=== PATIENT | male | born 1975 | race Caucasian/White ===

== ENCOUNTER 2020-01-12 09:00 | Outpatient (RCR) | payer BC, SELFPAY ==
--- NOTE | 2020-01-12 09:04 | BH.SGPN.GN ---
Behaviors/Verbalizations/Mental Status: []Client alert and oriented, neat in appearance. Eye contact good. Motor activity appropriate. Speech within normal limits. Affect congruent, mood anxious. Thoughts linear, logical, no signs of hallucinations or delusions. Client Response/Progress/Benefit: []Pt responded well to session AEB pt listening attentively to others and openly sharing thoughts and feelings. Pt stated he is seeking help because he started having worsening anxiety about 6 weeks ago. pt shared he has gone to the emergency room twice in 6 weeks believing he was having a heart attack, but both times was told his heart is fine. Pt stated he realized his anxiety was causing physical problems. Pt reported he has been working on building healthy skills for the past month, but recognizes he could use additional help. Pt stated he has learned some skills to help with some of his anxiety, but when the tidal wave of anxiety hits he doesn't know what to do. Pt identified current emotions are anxiety and hope. Pt seemed to benefit from support by peers. Pt's first day in IOP. Pt recommended to continue IOP to increase healthy skills, decrease anxiety and prevent decompensation. Narrative Note: []
--- NOTE | 2020-01-12 10:10 | BH.SGPN.GN ---
Behaviors/Verbalizations/Mental Status: []Client alert and oriented, casually dressed and groomed. Eye contact good. Motor activity appropriate. Speech within normal limits. Affect constricted, mood anxious, depressed. Thoughts linear, logical, no signs of hallucinations or delusions. Client Response/Progress/Benefit: []Client first day in IOP program. He was receptive of session, attentive in discussion and activity. Client actively listening discussion on the quote. Client helped group identify barriers that impact one?s ability to communicate when emotions are high. These barriers included; lack of trust, fear of other?s reactions, learned beliefs and behaviors, past experiences, and distorted thoughts. Client shared that holding in emotions can lead to decreased ability to cope later on when facing larger stressors. Client participated in the activity and did well to manage his emotions while providing directions and encouragement to others. Client appeared to benefit from increasing awareness of how emotions can impact communication and practicing in the moment coping skills. Will continue IOP tx to further increase improve coping and communication, reduce anxiety, and improve daily functioning. Narrative Note: []
--- NOTE | 2020-01-12 11:15 | BH.SGPN.GN ---
Behaviors/Verbalizations/Mental Status: []Client alert and oriented, professionally dressed and groomed. Eye contact good. Motor activity appropriate. Speech within normal limits. Affect constricted, mood anxious. Thoughts linear, logical, no signs of hallucinations or delusions. Client Response/Progress/Benefit: []Client attentive and occasionally contributing to discussion. Attentive during psychoeducation on 4 zones of regulation. Client able to identify how client feels in each zone as well as how client acts in each zone. Client able to identify what behaviors client exhibits when in the different emotional zones. Client also able to identify coping skills client can use to cope effectively in each zone which included: talking to a safe support, breathing, and focusing on a task. Client reports belief he is in the ?yellow zone? or the heighten emotional alertness zone today because he feels anxious. Client shared he has been struggling to regulate his anxiety, but he is starting to learn more about what helps him. Client reported eating lunch today and relaxing with his later will help client lessen anxiety and return closer to baseline. Benefited from increased education on zones of regulation or stages of alertness for emotions and healthy coping skills to use for each zone. First day of IOP. Will continue to prevent decompensation of anxiety symptoms and improve daily functioning. Narrative Note: []
--- NOTE | 2020-01-12 14:24 | BH.COMM_ITS ---
Communication Note - Communication with Client Communication Note: Met with pt to complete initial paperwork. No significant changes since pre-admission screening. Completed [facility] suicide screening. Low risk as client denies history of any suicidal ideations or passive thoughts of . Denies any suicidal ideations, plan, or intent. Denies history of attempts and self-injurious behaviors. Multiple protective factors noted. No weapons in the home.
--- NOTE | 2020-01-12 14:53 | BH.MDN ---
Multi-Disciplinary Note - Note 30-min Individual Time Started:: 12:09 Date: 01/12/20 Purpose of session/treatment goals addressed:: Purpose of this session was to establish rapport with pt, gather additional information regarding pt current functioning, symptoms, and stressors impacting mental health. Additional purpose was to complete the [place] Suicide Screening to assess for risk, discuss tx expectations, and begin development of treatment goals. Eye Contact:: Good, Other - tearful Motor Activity:: Appropriate Appearance:: Neat, Casual Speech:: Appropriate Mood:: Anxious, Depressed Affect:: Congruent Thoughts:: Linear, Logical, No evidence of hallucinations/delusions noted Staff Interventions:: Therapist asked open ended and furthering questions to gather additional information regarding pt's symptoms, current stressors, as well as events leading to IOP admission. Worked with client to explore treatment goals to address in IOP tx. Therapist used strengths perspective to build rapport and help pt identify personal positives and resilience factors. Therapist used empathic responses to provide emotional validation. Applied MD techniques to explore coping strategies that have helped in the past with mental health sx management. Client Response:: Pt open to meeting with this therapist and remained actively engaged throughout session. He reports that his first day in IOP went well and that he enjoyed the content of today?s group, managing emotions. 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 Went on to indicate often feeling like this was not the case and felt he benefitted from discussion on the importance of learning healthy ways for processing and expressing his emotions as he indicated he had not learned growing up that emotions can be a good thing. He discussed that her believes this led to his difficulties in processing his grief related to a traumatic loss experienced several months ago. Shared struggling with ongoing grief and intrusive thoughts about since then. Went on to indicate his primary concern is his difficulties with managing sx of anxiety and expressed he has recently had several panic attacks leading to an emergency department visit and several medical tests due to fears that something more is ?wrong?. Shared current sx have resulted in pt taking leave from work. Expressed significant anxious thoughts about medication and fears regarding ?what will happen if I?m not in control?. Shared worrying about being able to care for his family. Currently endorsing sx of increased anxiety, ruminating thoughts, intrusive thoughts of , depression, and low self-worth. Noted current sx have impacted ability to function at baseline and resulted in impacts on personal and occupational functioning. Pt identified tx goals as improving emotion regulation, specifically anxiety management skills and identifying healthy means of coping. Risks/Concerns:: No risks or concerns noted. Pt denies any active SI, plan, or intent. Reports his family as major protective factor. Future oriented. Pt aware of and willing to utilize the local crisis resources should he feel unable to maintain safety at any time. Progress Toward Goals/Plan:: Pt new to IOP tx and this is his 1st day in program, therefore limited progress currently noted. Reports he is motivated to make improvements for his mental health and ability to better manage anxiety. Pt endorses a depressed and anxious mood, negative thinking, depression, and crying spells. Identified goals for treatment as: improve ability to cope with his emotions specifically anxiety, improve self-esteem, improve application of healthy coping skills, and decrease depression. Will continue IOP to prevent decompensation, maintain safety, improve daily functioning, and increase mood stability. Time Stopped:: 12:40
--- NOTE | 2020-01-12 17:11 | BH.MTP_ITS ---
Master Treatment Plan - Patient Information Program Physician:: Dr. 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 Description of Barriers: Ongoing grief for client?s mentee who recently completed suicide. Occupational stress related to recent traumatic of his mentee and feeling unsure of his role in to [employer] field. Health anxiety and ongoing medical issues. Client has additional legal and financial stressors related to obtaining custody of his foster daughter who struggles with various medical issues as well. Functional Impact: Patient is a 44-year-old male with a history of anxiety and depression who was referred to [facility] in December and since then has had worsening symptoms and 2 emergency room visits for anxiety. 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 Pt has been struggling with significant intrusive thoughts about harming himself, as well as fears he has something physically wrong with him. Medical related anxiety has resulted in pt seeking out several m edical tests to identify potential physical ailments and has reduced ability to function at baseline. At time of admission, Pt endorsing sx of increased anxiety, ruminating thoughts, intrusive thoughts of , depression, and low self-worth. Noted current sx have impacted ability to function at baseline and resulted in impacts on personal and occupational functioning. Goal Relevant Strengths/Supports: Client presents as kind, outgoing, intelligent, resilient, and motivated. Client's anne is a protective factor and he has several supports in his life including his , clergy, and children. Client is receptive to learning skills and improving his mental health. - Objectives Objective #1 Stated Objective: Client will learn and utilize 2-3 healthy coping strategies to better manage depressive symptoms and reduce DSM-5 symptoms for depression. Interventions: Through group and individual sessions, therapist will help client identify triggers and warning signs of depression and emotional dysregulation including emotional, physical, and behavioral changes. Therapist will teach cli ent various coping skills to manage her symptoms. Therapist will use cognitive restructuring techniques and help client gain awareness of negative thoughts that reinforce depressive cycles. Therapist will help client incorporate mindfulness and emotional regulation skills when dealing with difficult situations. Discharge Criteria: Client will have met this goal when she can report learning and using at least 2 coping skills to manage depressive symptoms and her DSM-5 scores for depression have decreased. Target Date: 02/23/20 Review Date: 02/09/20 Objective #2 Stated Objective: Client will identify at least 2-3 negative self-talk messages used to reinforce depression and replace thoughts with positive, realistic messages. Interventions: Therapist will help client identify distorted, negative beliefs about self and replace with more realistic, affirmative messages. Therapist will use CBT to help client increase insight to the connection between thoughts, emotions, and behaviors. Therapist will encourage client to practice thought challenging and self-compassion. Discharge Criteria: Client will have achieved this goal when can verbalize at least 2 negative self-talk messages and effectively replace those thoughts with affirmative messages. Target Date: 02/23/20 Review Date: 02/09/20 Problem/Goal #2 - Problem/Goal #2 Stated Goal:: Client will reduce overall frequency, intensity, and duration of anxiety and ruminations about health so that daily functioning is not impaired. Description of Barriers: Ongoing grief for client?s mentee who recently completed suicide. Occupational stress related to recent traumatic of his mentee and feeling unsure of his role in to [employer] field. Health anxiety and ongoing medical issues. Client has additional legal and financial stressors related to obtaining custody of his foster daughter who struggles with various medical issues as well. Functional Impact: Patient is a 44-year-old male with a history of anxiety and depression who was referred to [facility] in December and since then has had worsening symptoms and 2 emergency room visits for anxiety. 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 Pt has been struggling with significant intrusive thoughts about harming himself, as well as fears he has something physically wrong with him. Medical related anxiety has resulted in pt seeking out several medical tests to identify potential physical ailments and has reduced ability to function at baseline. At time of admission, Pt endorsing sx of increased anxiety, ruminating thoughts, intrusive thoughts of , depression, and low self-worth. Noted current sx have impacted ability to function at baseline and resulted in impacts on personal and occupational functioning. Goal Relevant Strengths/Supports: Client presents as kind, outgoing, intelligent, resilient, and motivated. Client's anne is a protective factor and he has several supports in his life including his , clergy, and children. Client is receptive to learning skills and improving his mental health. - Objectives Objective #1 Stated Objective: Client will identify 2-3 anxiety triggers and 2 coping skills to use when feeling anxious to manage anxiety as shown by decreasing DSM-5 scores for anxiety. Interventions: Through group and individual sessions, client will gain awareness of her anxiety triggers and learn numerous techniques to manage anxiety symptoms. Therapist will mindfulness and other calming techniques to manage symptoms and increase distress tolerance skills. Discharge Criteria: Client will have met this goal when client's DSM-5 scores for anxiety decrease and when she can identify at least 2 triggers and 2 ways to cope with anxiety. Target Date: 02/23/20 Review Date: 02/09/20 Objective #2 Stated Objective: Client will identify 2-3 cognitive distortions or mistaken beliefs that lead to rumination and health anxiety and learn 2-3 ways to manage these thoughts to reduce symptoms Interventions: Therapist will provide education on the most common cognitive distortions and teach client the connection between thoughts, emotions, and feelings. Therapist will assist client in identifying, challenging, and replacing dysfunctional thoughts with positive, more realistic thoughts. Therapist will use CBT and DBT techniques to help client gain awareness of thinking errors and learn how to more effectively handle negative thoughts. Discharge Criteria: Client will have accomplished this goal when can identify at least 2 cognitive distortions and at least 2 coping skills to manage negative thoughts. Target Date: 02/23/20 Review Date: 02/09/20
--- NOTE | 2020-01-13 10:26 | BH.NA_ITS ---
Physical Data - Vital Signs Temperature: 97.8 F Pulse Rate: 60 Respiratory Rate: 16 Blood Pressure: 120/76 - Height/Weight Height: 1.75 m Weight:: 86.183 kg Weight in Pounds: 190.0 lbs Current Medication Compliance - Medication Compliance Do you take your medication as prescribed?: Yes Do you need assistance with taking medication?: No Nutritional History - Appetite Nutritional Instructions:: If client shows signs of a swallowing problem, weight change of 10 pounds or more in the last month, or is on a diabetic diet, the physician will review and request a dietitian consult, as appropriate. All unintentional weight loss will be referred to the physician for decision on need for dietitian consult. Describe your appetite:: Fair Have you noticed a change in your eating habits lately?: Yes Additional nutritional information:: states appetite has recently been improving in the last few days, but states he has lost 15lbs in the last 3-6 weeks. Functional Assessment - Sleep Pattern Describe any problems with sleeping: Client states he usually takes Tylenol PM at night to help him sleep, but will stop with new prescription given to him by Dr. Mahan. Client states he sleeps about 6-7 hours per night but does wake up more than once overnight. - Activities Motor Activity:: Functional Sensory/Communication Assess - Vision Problems Do you have any vision problems?: Glasses - Communication Problems Do you have difficulty understanding what people are saying?: No Medical Problems/History - Cardiac Conditions Comments:: Client has recently had cardiac work-up due to chest pain. Client states the tests that have been done (blood work, echo, CT, CXR) have all been negative. Client states he saw a pasta press operator outpatient and they stated chest pain was not cardiac related. Client states his PCP, Dr. Bearden, has him taking 600mg Ibuprofen twice daily at this time to attempt to help with chest discomfort. - Pain Assessment Do you have acute or chronic pain?: No Surgical History - Surgical History Have you had any surgeries? If so, list type and date:: Yes - hernia surgery x3, vasectomy Substance Abuse - Substance Abuse Please describe substance abuse in the last 30 days:: Client states in the last few months, he noticed that he was having an alcoholic drink a night to help him cope with anxiety symptoms. Client states he stopped drinking all alcohol after 11/10/2019, his first trip to the emergency department for chest pain. Client denies drug and tobacco use. Mental Status Summary - Mental Status Significant Findings/Observations on Appearance and Mood:: Client is alert and oriented x 4. Client neatly groomed. Client is pleasant and cooperative for assessment. Client makes good eye contact during conversation. Client's speech normal rate and volume, and coherent and clear. Client appears mildly anxious. Client with appropriate affect and makes logical associations. Client with normal processing. Client denies deluisions/hallucinations and no evidence of same. Client denies SI at this time. Client with good attention and concentration during assessment. Suicide Assessment - Suicidal Ideation Are you currently or have you been suicidal in the past?: Yes Suicidal Intentional Rating Scale (SIRS): Suicidal thoughts (past) - has had intrusive thoughts about , denies actual suicidal ideations Physician Notification: If Active suicidal thoughts/Will not contract for safety is checked, contact physician and document in the Physician Notification section below. Past Psychiatric History - MH Treatment Hx Past Psychiatric Medications:: Was on Zoloft and Buspar for short period of time recently. Client states after 4 days of Zoloft, he went to the emergency department with chest pain and had inverted T wave, increased blood pressure and intrusive thoughts about . Client states after about 4 days of Buspar, he felt more anxious and had more panic and had dark thoughts. Age of first mental health symptoms: Client states he felt he had some anxiety a couple of years ago and had some spiritual counseling. Client states in the last 3-4 months, he has had many episodes of chest pain that he feels are related to anxiety (after having cardiac work-up to rule out cardiac causes). Current providers for mental health treatment (counselor, psychiatrist, shoe parts caser, etc.): Client states he is currently doing grief counseling. Fall Risk Assessment - Age Age: Less than 60 - Mental Status Mental Status: Willing & able to ask for assistance when needed - Physical Status Physical Status: No problems - Impairments Impairments: None - Elimination Elimination: Continent AND independent - Gait or Balance Gait or Balance: Walks independently - Hx of Falls History of falls in the past 6 months: No known history - Medications/Substances Psychotropics:: Anxiolytics (e.g. benzodiazepines) Medications/substances used within the past 24 hours or ordered to administer: 1-2 of the medications/substances listed above - Total Score Total Points:: 1 RN Summary of Impressions - Impressions Recommendations: Include psychiatric and medical issues, treatment planning recommendations, and discharge planning needs. Impressions: Psychiatric Issues: major depressive disorder recurrent moderate, panick attack disorder, generalized anxiety disorder, somatic symptom disorder with predominant pain - Level of Care How do the client's current symptoms and functional deficits support need for this level of care?: Client states he has felt anxious in the last 3-4 months. Client states about 4-5 months ago, a close friend completed suicide. Client states he went to the emergency room 2 times in November 2019 for chest pain that he believes was caused by anxiety. Client has had cardiac work-up more than once to rule out cardiac causes of chest pain. Client states chest pain is still present, and his PCP Dr. Bearden has him currently taking Ibuprofen two times daily to attempt to help with chest pain that is sternal and also on right side of upper chest. Client states other symptoms he has been having in the past few months have been some intrusive thoughts about (he states these were intense when he was taking Zoloft and Buspar, states he had some images in his head about suicide and that were disturbing to him. Client states he was not ever actually suicidal himself but he imagined what it would be like if he went down that road). Client states he has panic attacks, where his chest is tight, neck and jaw pain, sometimes headaches. Client states he has had episodes of crying, decreased energy, and decreased self worth. 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 IOP will promote gains and prevent further decompensation while providing social support and skills training.
--- NOTE | 2020-01-13 11:20 | BH.SGPN.GN ---
Behaviors/Verbalizations/Mental Status: []Client alert and oriented, neatly dressed and groomed. Eye contact fair. Motor activity appropriate. Speech within normal limits. Affect constricted and mood anxious. Thoughts linear, logical, no signs of hallucinations or delusions. Client Response/Progress/Benefit: []Client provided input at times during discussion, listened attentively to peers. Client completed worksheet identifying his positive and negative forces in life. Client identified positive forces that aid in progressing toward mental health goals included: family, support system, anne, determination to get better, and fear of what will happen if doesn't get help. Client indicated negative forces that prevent progress include: getting stuck in unprocessed grief, health anxiety, difficulty asking for help and questioning self. Client seemed to benefit from increased awareness of personal positive and negative forces in life and impact they have on mental health and wellness. Client to continue IOP level of care to decrease anxiety, increase healthy coping and prevent decompensation. Narrative Note: []
[2020-01-13 11:34] VITALS: BP 120/76; PULSE 60; RESP 16; TEMP 36.6
--- NOTE | 2020-01-13 13:31 | PCM.BH.PSYEV ---
Psychiatric Evaluation - Initial Evaluation Initial Evaluation: Chief Complaint: [] Life is a daily felipe. History of Present Illness: [] Patient is a 44-year-old male with a history of anxiety and depression who was referred to [facility] in December and since then has had worsening symptoms and 2 emergency room visits for anxiety. 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 He plans to return to work in 1 month or so but also has doubts that he is in the right field for himself. He describes intrusive thoughts of cutting his wrists which occur only during severe panic attacks. He went to the emergency room November 10, 2019 with a panic attack and also went to the emergency room after taking BuSpar which triggered anxiety and a panic attack. He has had severe anxiety about his health and has had numerous symptoms of pain since about 1 year ago which have worsened in the past few months. He describes decreased ability to function at work and at home due to his anxiety and his symptoms of pain. He describes having chest pain since about 1 year ago. His primary care doctor had worked him up and tried medication which did not help. He also had a endoscopy which was negative. His pain is still there which is discomfort but also when he presses on his sternum and is tender to the touch. He has another area of pain in his right upper shoulder anteriorly and posteriorly on his back in the same spot. He also describes headaches, jaw pains and other pain. No one can find an apparent cause for his pain. He said his symptoms have worsened since August 2019 when a coworker that he was very close to committed suicide. He has some guilt over this. He also states that he feels he has unresolved traumas that he is working on with his counselor. He has been feeling depressed and down most days and has cried at times. His mood even worsens more than that when he has pain and anxiety. He has decreased motivation and at times feels hopeless. He states that currently he feels overall more hopeful since starting her program. He has mild out anhedonia but still enjoys his children. However he did state that Saturday is a very stressful day for him because the children are home and he has activities to do with them. His appetite is decreased and he lost 15 pounds since November secondary mostly to anxiety. He is sleeping about 7 hours a night now if he takes Tylenol PM. His energy level is low but may be improving. His concentration has been decreased especially when anxious. He has no passive thoughts of and denies any suicidal ideation or plan. He also denies homicidal ideation, hallucinations or delusions. He denies kamari, eating disorder, OCD and PTSD. He is a worrier by nature and was having panic attacks until about 10 days ago. His most recent panic attacks were caused by taking medications. He took Zoloft one time and BuSpar one time and had severe anxiety. He says he hates taking medication. He took Zoloft at 25 mg for 3 days and when he increased it to 50 mg he had severe panic attacks and went off it. He was admitted overnight in the emergency room after 1 of the panic attacks and had a complete cardiac cardiac work-up including an echo EKG and monitoring. His EKG at one point in the emergency room had inverted T waves but appears to have normalized later. Current Psychiatric Medications: [] Van 0.5 mg as needed (from PCP): Patient takes 1/2 tablet daily or twice daily at most. Past Psychiatric History: [] No psych admits. No suicide attempts ever. He has changed to a new primary care doctor Clementina Bearden because his other primary care doctor just wanted to give him a lot of meds for psych reasons and he did not want to take them. He has a grief counselor and another counselor in [place] that he is had for the past 3 years. He first received counseling at age 41. 2 years ago he had bad anxiety triggered by stress at confucianism and saw a counselor at that time. Past psych meds include Zoloft, BuSpar and that is it. He was first depressed and anxious in his teens and first took meds in November 2019. He feels he was never depressed before recent years but he feels like maybe he suppressed grief and loss is in the past. Substance Use History: [] No rehab ever. Non-smoker and no marijuana. No caffeine use or alcohol or other drugs. He did use alcohol on occasion and increased to 2 or 3 drinks a night in November but completely stopped using any alcohol since November 2019. Denies blackouts or other from alcohol use Allergies: []. No known allergies Medications: [] LPM for sleep, Ativan, ibuprofen 3 times daily for chest pain Past Medical History: [] Negative past medical history. He had a vasectomy and hernia repair in the past. Normal sexual function. Family Psychiatric History: [] Mother is 71 years old and his father is 70 years old and has some heart issues. He states that no one in the family takes any medication but he says there are a lot of worrier's in the family. No suicides. No substance issues. Personal/Social History: [] Patient was born and raised in [place] and describes his childhood as normal. He is the third of 4 siblings and has a brother 7 years older and a brother 6 years older. He has a sister 4 years younger. He is close to some of the siblings. His parents were and he felt that he was loved but he says his family did not express emotion at all. He denies any physical, verbal or sexual abuse. He said his father was critical at times. In school he received good grades and graduated high school went to college and got a BA in [employer] and a masters of Divinity. 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 They have 4 biological children ranging from age 2 to age 13 and one foster child who is 6 years old that they are trying to get permanent custody of. They have been fostering children for about the past 6 years but this is the last child they will foster. 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 He likes the teaching part and preaching but not the pastoral care part. He was a business major in college but changed his major 2 years and. Legal History: [] No arrests and no DUIs Review of Systems: [] Negative except as noted in present illness Vital Signs: [] Mental Status Examination: [] Patient is a 44 year-old male who appears normal for stated age and is casually dressed and groomed with good hygiene. He is cooperative during the interview and has no psychomotor agitation or retardation. Eye contact is good and speech is normal rate and rhythm and fluent with no pressure. Mood is depressed and anxious. Affect is constricted and consistent with mood. Thought process is goal-directed and organized. Thought content: There is no evidence of suicidal or homicidal Babita ideation. No dusts thoughts and no plan. No evidence of hallucinations or delusions. The patient is preoccupied with his numerous pain symptoms and worried about his health. Agents is above average. Judgment is intact. Insight is limited. Impulsivity is low. 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 He felt safe during the interview and if at any time he does not feel safe he will tell us to go to the emergency room. The risk, possible, complications side effects and options of medication were discussed with the patient and he understands and accepts these. He was given the option of getting gene site analysis from his outpatient providers. But if the patient's intolerance of medication is due to anxiety than this will probably not be the answer. He he is going to stay off all caffeine and he agrees to start trying to exercise right on a regular basis. He agrees to try Remeron 15 mg p.o. nightly. Side effects and possible complications were discussed in detail and patient understands and accepts these. If this does not work its possible we I could try Cymbalta later in the hope that if he does have any neuropathic pain it would help it. In addition if the chest pain persists after he is on the Remeron I may consider adding propranolol 10 mg p.o. twice daily for the chest pain. I will see the patient in 2 weeks.
--- NOTE | 2020-01-13 13:46 | BH.DR.ITP ---
Initial Treatment Plan - Patient Information Visit Information: ADMISSION DATE: EXPECTED LOS: 4-6 weeks - Problems/Symptoms Problem #1:: Anxiety Symptom:: somatic symptom of pain, rumination, panic Problem #2:: Depression Symptom:: sadness, weight loss, , hopelessness, guilt
--- NOTE | 2020-01-14 09:07 | BH.SGPN.GN ---
Behaviors/Verbalizations/Mental Status: []Eye contact is good. Motor activity is appropriate. Appearance is casual, grooming appropriate. Speech is Appropriate rate and soft tone. Mood is anxious. Affect is congruent. Thoughts are linear and logical. No evidence of psychosis. Reviewed daily check in sheet and pt denies any active SI, plan, or intent as of this date. Client Response/Progress/Benefit: [] Client responded well to session as evidenced by him listening attentively to others and openly sharing thoughts and feelings. Client identified current emotions to be tired and calm. Client stated his stressor was experiencing a tingling in his face on his drive home from [facility] yesterday which led to increased anxiety throughout the rest of the day. Client reported he will often google his physical symptoms which increases his anxiety. Client reported a mental health when from yesterday was choosing to go to dinner with a friend that came in to visit instead of staying at home. Client reported another mental health when was taking his new medication last night despite having worries that he will not respond well to the medication. Client shared in the last 6 weeks he has not been able to find a medication that does not have a side effect or his anxiety is causing side effects. Client reported he utilized meditation, deep breathing, and a weighted blanket to help decrease his anxiety. Progress noted with patient utilizing healthy coping skills to help manage his anxiety at times throughout the day. Client to continue [facility] level of care to decrease anxiety, increase healthy coping skills, and prevent decompensation. Narrative Note: []
--- NOTE | 2020-01-14 10:12 | BH.SGPN.GN ---
Behaviors/Verbalizations/Mental Status: []Client alert and oriented, casually dressed and groomed. Eye contact good. Motor activity appropriate. Speech within normal limits. Affect congruent, mood anxious. Thoughts linear, logical, no signs of hallucinations or delusions. Client Response/Progress/Benefit: []Pt active participant as shown by contribution to discussion and increased ability to provide insight to group. Appearing more comfortable in group setting. Pt shared that self-care is important but can be difficult based on whether we are taught to value self-care. Pt helped the group discuss benefits of self-care and expressed connecting to idea of self-care as preventative. Benefits included; improved relationships, maintaining stability, less stress, better perspective, and improved mood. Pt participated in the discussion of the common myths about self-care including self-care is selfish, always fun, too much effort and time, and we don?t deserve it. Client participated in the discussion on debunking of these myths, and took on a semi-active role during discussion. Taking notes throughout. Group stated that everyone is worthy of self-care and by practicing self-care daily, it can prevent avoidable additional stressors. Client seemed to benefit from increased awareness of the importance of self-care and challenging common myths that prevent clients from practicing self-care. Client showing some progress, however new to IOP and continues to appear anxious to engage in group discussion. Will continue IOP tx to promote gains, further improve healthy skill application, as well as prevent decompensation. Narrative Note: []
--- NOTE | 2020-01-14 11:15 | BH.SGPN.GN ---
Behaviors/Verbalizations/Mental Status: []Client alert and oriented, neatly dressed and groomed. Eye contact good. Motor activity appropriate. Speech within normal limits. Affect constricted, mood anxious. Thoughts linear, logical, no signs of hallucinations or delusions. Client Response/Progress/Benefit: []Client receptive of session, actively listening and contributing to discussion. Participated as the group further processed the activity and connected that maintaining self-care requires balancing life stressors and making oneself a priority. Client shared life stressors and responsibilities can become barriers to self-care, ?but if we don?t practice it, we can?t give to others.? Willing to complete worksheet activity and helped the group identify self-care activities. Client completed self-assessment activity on the different areas of self-care and was able to identify current practices he uses and identify areas he can improve upon. Client reported he can improve his physical self-care area. Client shared ?exercise is something I haven?t got back yet.? Client set a goal to improve in the area of physical self-care. Client?s goal is to practice combining his spiritual routine with walking or yoga to begin incorporating exercise. Client appeared to benefit from increasing awareness of how he can improve his self-care balance. Client?s first week of IOP. Will continue IOP tx to prevent decompensation, reduce intrusive thinking, and improve daily functioning. Narrative Note: []
--- NOTE | 2020-01-19 09:08 | BH.SGPN.GN ---
Behaviors/Verbalizations/Mental Status: [] Pt eye contact good, casually dressed, motor activity appropriate, speech normal rate and tone, mood anxious, congruent affect, thoughts linear and intact, no evidence of delusions or hallucinations. Reviewed client?s symptom tracker, no signs of suicidal ideation, plan, or intent as of today. Client Response/Progress/Benefit: [] Patient responded well to session as evidenced by him listening attentively to peers and sharing thoughts and feelings openly with group. 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 Patient reported typically he has an assistant professor nurse education at the game which provides comfort if patient needs to step out because of his anxiety. Patient stated this past Saturday his assistant professor nurse education was not at the game which increased his anxiety but by using deep breathing and self talk he was able to manage his anxiety and make it through the game. Patient reported an additional mental positive was going for a hour walk on Saturday to get some exercise and remind himself to trust his doctors and professionals. Client identified a stressor is experiencing chest pain and other physiological symptoms since yesterday which he knows is likely anxiety but it still results in him having what if thoughts about health. Patient identified current motion to be concerned. Patient reported he goes to see his primary care doctor on Saturday to get the results of a CT scan. Patient demonstrating progress with utilizing self talk and calming strategies to manage his anxiety in the moment. Patient to continue IOP level of care to decrease anxiety, increase ability to sit with uncomfortable emotions, and prevent decompensation. Narrative Note: []
--- NOTE | 2020-01-19 10:15 | BH.SGPN.GN ---
Behaviors/Verbalizations/Mental Status: []Client alert and oriented, neatly dressed and appropriately groomed. Eye contact good. Motor activity appropriate. Speech within normal limits. Affect constricted, mood anxious. Thoughts linear, logical, no signs of hallucinations or delusions. Client Response/Progress/Benefit: []Client was an active participant in group activity and provided input to discussion. Client connected with the topic of obstacles and solutions and worked with group to identify common internal and external barriers that keep people stuck. Group identified; self-doubt, negative thinking, unrealistic expectations, helplessness, and what if thinking as potential internal barriers that could prevent progress towards a better quality of life. Client shared current reality as me looking back in the past and in the future instead of the future. Client reported currently he is struggling with racing thoughts, pain, unprocessed grief, and managing his anxiety. Client shared there are times though when I start to feel like my old self. Client's realistic, desired reality is to feeling totally centered which to client means having a good relationship with God, his supports, and with himself. Client identified barriers keeping him from his desired reality to include; not being present, shutting down, and being reactive instead of responsive. Benefited from group as client was able to identify current mental health state and barriers that are impacting progress. Will continue IOP tx to prevent decompensation, decrease intrusive thoughts, and improve distress tolerance. Narrative Note: []
--- NOTE | 2020-01-19 11:20 | BH.SGPN.GN ---
Behaviors/Verbalizations/Mental Status: []Client alert and oriented, casually dressed and groomed. Eye contact good. Motor activity appropriate. Speech within normal limits. Affect congruent, mood dysthymic, anxious. Thoughts linear, logical, no signs of hallucinations or delusions. Client Response/Progress/Benefit: []Client was an active participant in group discussion and activity. Pt was engaged during activity and provided ideas on how to cope with internal barriers impacting ability to reach desired reality. Client along with peers identified various obstacles during the activity and developed strategies to overcome those obstacles to wellness and desired reality. Barriers identified by the group included: impatience, difficulties communicating with supports, overwhelming anxiety, and unrealistic expectations. Strategies identified for overcoming these barriers included: deep breathing, taking small steps, thought challenging, and mindfulness. Client selected wanting to work on applying the skill of recognizing supports available and actually taking steps to utilize the as a means of overcoming his own internal barriers. Benefited from group by identifying obstacles and solutions to desired reality. Will continue IOP tx to increase mood stability, reduce mental health sx, and increase anxiety management skills. Narrative Note: []
--- NOTE | 2020-01-19 15:40 | BH.MDN ---
Multi-Disciplinary Note - Note 30-min Individual Time Started:: 12:23 Date: 01/19/20 Purpose of session/treatment goals addressed:: Purpose of session was to assess pt's current symptoms and stressors. Other topics included: Reviewing homework and discussing factors impacting severity of intrusive thoughts as well as beginning to discuss helpful and unhelpful strategies for managing unwanted intrusive thoughts. Eye Contact:: Good Motor Activity:: Appropriate Appearance:: Casual Speech:: Appropriate Mood:: Anxious Affect:: Congruent Thoughts:: Linear, Logical, No evidence of hallucinations/delusions noted Staff Interventions:: Therapist used open ended questions to elicit pt's current symptoms and stressors. Provided supportive feedback and empathic responses. Therapist reviewed homework from last session explaining intrusive thoughts and how they form. Therapist assisted pt with identifying factors impacting his own thoughts. Therapist provided psychoeducation on strategies for managing unwanted intrusive thoughts and role of reassurance in reinforcing intrusive thinking. Therapist provided support by using active listening and validating emotions. Client Response:: Pt receptive of session, engaged throughout. He reported feeling ?alright? today but has recently begun to struggle with increased anxiety related to pains he has been having in his chest. Reported that he has been practicing trying to sit with the uncomfortable and that this is helpful in times when he is not stressed but has been struggling more when the pain is not a sensation he has felt before. Indicated that this makes it more difficult to challenge the thoughts and reassure himself that it is ?just anxiety?. Pt expressed understanding psychoeducation provided regarding impact of increased stress on increasing likelihood of experiencing intrusive thoughts as well as further impacting the difficulty in effectively coping with such thoughts. Pt shared that he has been experiencing an influx in stress recently which includes: grief related to past events, stress related to legally seeking custody of his foster daughter, his home environment, questioning his ability and desire to return to work, disruption in his normal routine, and experiencing physical pains. Discussed with therapist common means of coping he has been using and pt shared that he often journals about what was happening before or after anxiety occurs, engaging in mindfulness, reminding himself this is just anxiety, and seeking support. Receptive of discussion on identifying when seeking support from self and others can become toxic and reviewed influence of reassurance seeking on maintaining and reinforcing anxiety. Discussed strategy of ?riding the wave? and learning to sit with uncomfortable feelings and intrusive thoughts rather than trying to fight them. Pt noted willingness to attempt practicing the six steps for overcoming unwanted intrusive thoughts for homework as discussed in the Overcoming Unwanted Intrusive Thoughts book. Risks/Concerns:: None noted, pt denies current suicidal ideation, plan or intention to date, 01/19/20. Progress Toward Goals/Plan:: Limited progress. Pt reports information provided regarding intrusive thinking has been helpful in beginning to identify and learn to sit with his thoughts but that he has recently struggled with increased anxiety related to physical symptoms. Shared this impacted ability to function and continues to result in panic. Pt recognizes impact of reassurance seeking on maintaining anxiety but struggles to see his own engagement in reassurance seeking behaviors. Pt to continue IOP level of care to increase consistent application of healthy skills, challenge negative thoughts and prevent decompensation. Time Stopped:: 12:59
--- NOTE | 2020-01-20 09:04 | BH.SGPN.GN ---
Behaviors/Verbalizations/Mental Status: []Pt alert and orient x3. Eye contact good. Motor activity is appropriate. Appearance is casual. Speech is Appropriate. Mood is euthymic, anxious. Affect is congruent. Thoughts are linear and logical. No evidence of psychosis. Reviewed daily check in sheet and no reports of suicidal ideations or intent. Client Response/Progress/Benefit: []Pt responded well to session, listening throughout discussion and providing supportive feedback to the group. Reports emotion for the day as ?positive, motivated? and indicated that this is due to feeling less anxious this morning that previous date. Pt did well to identify current mental health win as working through anxious thoughts on previous date by applying positive self-talk, sitting with the uncomfortable, taking a break, and deep breathing. Additional win identified as staying engaged during increased anxiety rather than disconnecting when spending time with his family. Stressor noted as reminding himself that the medication he has been prescribed for his anxiety is to help him and is safe. Benefited from support of the group and identifying personal successes. Progress noted in pt ability to successfully manage sx of anxiety outside group environment. Recommended continued IOP tx to promote healthy change behaviors, increase distress tolerance and emotion regulation, and reduce overall mental health sx severity. Narrative Note: []
--- NOTE | 2020-01-20 10:18 | BH.SGPN.GN ---
Behaviors/Verbalizations/Mental Status: []Client alert and oriented, neatly dressed and groomed. Eye contact good. Motor activity appropriate. Speech within normal limits. Affect flat, mood anxious. Thoughts linear, logical, no signs of hallucinations or delusions. Client Response/Progress/Benefit: []Client was an active participant AEB engagement in group activity and providing insightful input during discussion. Client worked with group to define resilience. Client shared when faced with difficult situations in life he often tells himself ?I can get through this.? Client able to make connections between activity and barriers/supports to the development of a resilient lifestyle. Client agreed with peers that one can learn to become more resilient throughout life, but it takes challenging thinking. Client able to work with group to discuss benefits of resilience on mental health which included; better management of mental health symptoms, increased healthy coping skills, increased confidence, less fear of stressors, and personal growth. Client was very active during group discussion and helped the group identify ways the 10 steps can make a person more resilient. Progress noted as shown by client?s report of applying coping skills outside of IOP to manage anxiety in the moment, but he still continues to struggle with intrusive thinking. Recommended continued IOP tx to reduce anxiety and intrusive thinking to improve daily functioning. Narrative Note: []
--- NOTE | 2020-01-22 09:05 | BH.SGPN.GN ---
Behaviors/Verbalizations/Mental Status: [] Eye contact is good. Motor activity is appropriate. Appearance is casual. Speech is appropriate. Mood is anxious. Affect is congruent. Thoughts are linear and logical. No evidence of psychosis. Reviewed daily check in sheet and no reports of suicidal ideations or intent. Client Response/Progress/Benefit: [] Pt participated at times. Emotions for today is encourged. Pt shared that he has a meeting with his employer yesterday regarding his return to work and feels encouraged by this. Reports that it was a positive meeting and overall he feels that he is making progress towards returning to work. Briefly discussed some skills and strategies that he is implementing and learning about to help with intrusive thoughts. Progress noted. Benefited from group support, encouragement, and feedback. Will continue in IOP to prevent decompensation, increase healthy coping, and improve functioning to return to work. Narrative Note: []
--- NOTE | 2020-01-22 10:15 | BH.SGPN.GN ---
Behaviors/Verbalizations/Mental Status: [] Eye contact is good. Motor activity is appropriate. Appearance is casual. Speech is Appropriate. Mood is anxious. Affect is congruent. Thoughts are linear and logical. No evidence of psychosis. Client Response/Progress/Benefit: [] Pt was an active participant in group discussion and activity. Attentive during psychoeducation. Provided feedback on the quote of the day. Worked with peers on defining goals (purposes), identifying benefits of goal-setting, and providing feedback during psycho-education on SMART goals. Engaged in activity. Benefited from group by learning the mental health benefits of setting goals that are specific, measurable, attainable, relevant, and time-specific. 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
--- NOTE | 2020-01-22 11:15 | BH.SGPN.GN ---
Behaviors/Verbalizations/Mental Status: [] Eye contact is good. Motor activity is appropriate. Appearance is neat. Speech is Appropriate. Mood is anxious. Affect is congruent. Thoughts are linear and logical. No evidence of psychosis Client Response/Progress/Benefit: [] Pt was an active participant in group discussion and activity. Provided appropriate feedback to peers. Pt choose the goal; Attend pentec[employer]alism this Saturday and be present among the sikh. When asked why this goal was important and beneficial to his mental health he stated; I want to see how I handle this experience so I don't overwhelm myself when I return to [facility] on 01/31/20. Identified the following barriers to completing this goal which included;my own anxiety, fear of not knowing how I'll react, feeling vulnerable, and my own expectations. Group provided feedback on whether this goal met the standards of a SMART goal and a discussion was had on strategies to help support his goals and overcome the barriers. Benefited from this group by practicing how to develop a short-term SMART goals related to mental health. Narrative Note: []
--- NOTE | 2020-01-25 09:05 | BH.SGPN.GN ---
Behaviors/Verbalizations/Mental Status: []Pt alert and orient x3. Eye contact good. Motor activity is appropriate. Appearance is casual. Speech is Appropriate. Mood is anxious. Affect is congruent. Thoughts are linear and logical. No evidence of psychosis. Reviewed daily check in sheet and no reports of suicidal ideations or intent. Client Response/Progress/Benefit: []Pt responded well to session AEB pt listening attentively to others and willingness to share with the group. Pt reported current emotion as ?steady? and indicated this is due to doing better to prevent his anxious thoughts from escalating to panic. Pt did well to identify mental health wins. Indicating a mental health positive was completing the goal he had set for himself in goal setting group on Saturday. Expressed this is also his stressor as it means he has to hold himself accountable now and is struggling with urges to avoid doing so. Continues to struggle with what if thoughts impacting decision making process, though is showing increased insight and progress in this area. Pt identified additional positive as being able to make it through several medical appointments without panic. Shared practicing applying sitting with the uncomfortable and reminding what is in his control. Pt progress in increased engagement in treatment setting. Pt appearing to benefit from ongoing support provided by group. Pt recommended to continue IOP to increase healthy coping, challenge distorted thoughts, and prevent decompensation. Narrative Note: []
--- NOTE | 2020-01-25 11:20 | BH.SGPN.GN ---
Behaviors/Verbalizations/Mental Status: []Client alert and oriented, neatly dressed and groomed. Eye contact good. Motor activity appropriate. Speech within normal limits. Affect congruent, mood euthymic. Thoughts linear, logical, no signs of hallucinations or delusions. Client Response/Progress/Benefit: []Client responded well to session, quiet, but participating when prompted. Group discussed the mental health benefits of recognizing strengths which included; improved self-esteem, better coping skills, and improved mood. Client shared that the way we are raised can cause a person to not recognize strengths. Client able to identify personal strengths he possesses which included; honesty, leadership, and wisdom. Client shared his wisdom helps client see the big picture and his honesty has helped client be vulnerable in seeking mental health support. Group discussed strategies to build and improve strengths which included; practicing self-compassion, affirmations, applying strengths or ?use them,? self-care, and keeping track of wins. Appeared to benefit from recognizing personal strengths and identifying strategies to improve strengths. Progress noted as client has been reporting decreased anxiety and duration of panic attacks, but continues to struggle with intrusive thinking. Will continue IOP tx to prevent decompensation and improve daily functioning. Narrative Note: []
--- NOTE | 2020-01-28 09:08 | BH.SGPN.GN ---
Behaviors/Verbalizations/Mental Status: []Pt alert and orient x3. Eye contact fair to good. Motor activity is appropriate. Appearance is casual. Speech is WNL. Mood is euthymic. Affect is congruent. Thoughts are linear and logical. No evidence of psychosis. Reviewed daily check in sheet and no reports of suicidal ideations or intent. Client Response/Progress/Benefit: []Pt responded well to session AEB pt listening attentively to others and willing to process with group. Pt reported current emotion as ?tired and tentative?, indicated this is due to being able to begin to see where he is making progress in coping with anxiety and making some decisions regarding plans for his future career [employer]. Pt did well to identify mental health wins. Current wins include reminding himself to apply components of radical acceptance in managing health related anxiety. Shared reminding himself that ?this is not that? when comparing his present to a past negative experience. Additional win recognized as being able to ?commit to giving up [employer] for lent?. Shared feeling this will help in reducing overall anxiety levels. Shared current stressor as struggling with ongoing anxiety associated with medical issues and his work despite improving on coping with these areas. Progress in pt self-report of improved anxiety management and ongoing application of skills learned, though would benefit from increased consistency. Pt recommended to continue IOP to increase consistency of healthy coping, improve anxiety management, and prevent decompensation. Narrative Note: []
--- NOTE | 2020-01-28 10:16 | BH.SGPN.GN ---
Behaviors/Verbalizations/Mental Status: []Client alert and oriented, neatly dressed and appropriately groomed. Eye contact good. Motor activity appropriate. Speech WNL. Affect full, mood euthymic. Thoughts linear, logical, no signs of hallucinations or delusions. Client Response/Progress/Benefit: []Client active participant as evidenced by providing input throughout discussion and giving personal examples of his experience with distorted thinking. Client agreed that he experiences automatic thoughts and often these thoughts can be negative. Client connected with the discussion about how distorted thought patterns can reinforce mental health symptoms. Client reported distorted thoughts can lead to rigid expectations and cause a person to give up on positive things. Client noted that he connects with black and white thinking, mental filter, and catastrophizing. Client reported he recognizes cognitive distortions can lead to increased depression, increase anxiety, and impact relationships. Client shared black and white thinking has impacted client's diet and exercise. Client reported either I'm on keto or I'm overeating...same thing with exercise. Appeared to benefit from increasing awareness of cognitive distortions and how they can impact emotions and behaviors. Client to continue IOP tx to decrease anxious thoughts and improve daily functioning. Narrative Note: []
--- NOTE | 2020-01-28 11:20 | BH.SGPN.GN ---
Behaviors/Verbalizations/Mental Status: []Pt eye contact good, casually dressed, motor activity appropriate, speech normal rate and tone, mood euthymic, congruent affect, thoughts linear and intact, no evidence of delusions or hallucinations. Client Response/Progress/Benefit: []Client?engaged during session AEB client providing contributions throughout group session. Client acknowledged the importance of needing to have awareness and put forth the effort to challenge, reframe, and replace distorted thought patterns. Client worked cooperatively with group to challenge distorted thoughts and was attentive in learning strategies to combat distortions. Client reported a distorted thought he has my seems upset I did something to make her mad. Client reported this thought makes him feel discouraged, sad, angry, distant, and disconnected. Client stated the thought is jumping to conclusions because has no evidence to support that thought. Client reframed the thought to my seems upset perhaps she had a bad day, I'll ask her. Client seemed to benefit from increased awareness of cognitive distortions and practicing reframing distorted thoughts. Client to continue IOP level of care to continue use of healthy coping, focus on what's in his control and prevent decompensation. Narrative Note: []
--- NOTE | 2020-01-28 11:42 | BH.MDN ---
Multi-Disciplinary Note - Note 45-min Individual Time Started:: 08:06 Date: 01/28/20 Purpose of session/treatment goals addressed:: The purpose of this session was to address current symptoms, stressors, and treatment goal progress. Additional topics discussed included: radical acceptance and self-care. Eye Contact:: Good Motor Activity:: Appropriate Appearance:: Neat, Casual Speech:: Appropriate Mood:: Euthymic, Anxious Affect:: Congruent Thoughts:: Linear, Logical, No evidence of hallucinations/delusions noted Staff Interventions:: Therapist used active listening and open-ended questions to explore client's current stressors, symptoms, and treatment goal progress. Therapist commended pt on application of skills reviewed for homework and gave supportive feedback. Therapist provided psychoeducation on concept of radical acceptance in management of anxiety and intrusive thoughts. Therapist taught client R.A.I.N. approach to self-compassion. Therapist reviewed self-care strategies and discussed role of self-care in anxiety management and mental wellness as well. Gave client homework to practice using R.A.I.N. in addressing intrusive thoughts as well as spend time engaging in at least one pure enjoyment self-care activity. Client Response:: Client responded well to session, open to meeting with therapist. Client shared feeling he is doing ?better overall? and indicated this is due to better managing his anxiety and making strides towards more consistently challenging himself not to act on initial anxious thoughts and instead learn to sit with them and continue engaging in his normal routine. Pt shared ?my intrusive thinking is improving by doing better at ?riding the wave??. Noted that although he has made progress in this area, he continues to struggle with anxiety related to ongoing physical health concerns. Shared recently having a CT done and is scheduled for a variety of tests throughout the next week including an MRI. 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 Expressed trying to remind himself that although the mass may be resulting in some of his increased sx of anxiety, it does not mean it is the only cause and that he should continue to work on anxiety management skills. Open to learning more about radical acceptance and the R.A.I.N approach to coping with reality without catastrophizing. Pt described the chaos of small children in his home environment as well as deciding what his return to work plans are continue to remain stressors as well. 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 Discussed current practices he is using outside of thought challenging to reduce stress and noted engaging in daily meditation and reading but has struggled to do much else. Shared a desire to get back into exercise and has considered taking a ceramics class. Noted guilt about practicing ?me time? when his is with the kids. Willing to discuss setting aside time for both of them to take for self-care. Pt reports often utilizing task oriented approaches to self-care but has not engaged in activities without a set end purpose in several years. Shared this may have additionally contributed to mental health decline and feelings of burnout. Risks/Concerns:: No risks or concerns noted. Denies any SI, plan, or intent as of this date 01/28/20. Progress Toward Goals/Plan:: Client appears to be responding well to treatment and making progress towards treatment goals. Client continues to report some health related intrusive thoughts and anxiety about return to work, but he has been implementing healthy coping skills which has helped client not stay stuck in anxious thought patterns as long. Client reports reduced frequency and duration of anxiety and daily meditation. Client continues to struggle with ruminations, reassurance seeking, and distorted thinking. Client responding well to learning about strategies for managing intrusive thoughts. Will continue IOP tx to prevent decompensation, promote healthy coping skills and anxiety management, and reduce negative thinking. Time Stopped:: 09:52
--- NOTE | 2020-01-29 09:00 | BH.SGPN.GN ---
Behaviors/Verbalizations/Mental Status: [] Eye contact is good. Motor activity is appropriate. Appearance is casual. Speech is Appropriate. Mood is anxious. Affect is congruent. Thoughts are linear and logical. No evidence of psychosis. Reviewed daily check in sheet and no reports of suicidal ideations or intent Client Response/Progress/Benefit: [] Pt participated when prompted. Attentive. Had a short check-in. Shared with the group that he had an MRI this AM and did well not to ruminate or dwell on possible results. Shared that he has a busy weekend upcoming and has some family coming into town to support him. Has previously talked about returning to work this weekend. Emotion for today is collected. Progress noted. Will continue in IOP to prevent decompensation, decrease intrusive thoughts, and transition back to work. Narrative Note: []
--- NOTE | 2020-01-29 10:13 | BH.SGPN.GN ---
Behaviors/Verbalizations/Mental Status: []Client alert and oriented, casually dressed and groomed. Eye contact good. Motor activity appropriate. Speech within normal limits. Affect congruent, mood euthymic. Thoughts linear, logical, no signs of hallucinations or delusions. Client Response/Progress/Benefit: []Client was a semi-active participant AEB providing some input throughout session and listening attentively to peers. The group discussed the quote and how the emotion anger is not good or bad, but one can respond to anger in healthy or harmful ways. Client worked with the group to define anger and its causes, as well as the internal and external impacts of anger. Group identified potential consequences of unhealthy management of anger to include: losing relationships, guilt, decreased self-esteem, lashing out, and worsening mental health symptoms. Client identified underlying factors of his anger which included: feeling disrespected or misunderstood, shame, feeling unloved, feeling out of control, feeling weak, experiencing triggers from past experiences. Client stated shutting down, sarcasm, short responses, self-harm, and beginning to lash out as responses she has when feeling angry. Benefited from group by increasing awareness of the negative impacts of unmanaged anger and underlying factors that contribute to anger. Progress noted as client reports increased ability to manage anxiety and better challenge negative/distorted thoughts, though continues to struggle in this area. Will continue IOP tx to prevent decompensation, promote healthy change behaviors, and improve mood stability. Narrative Note: []
--- NOTE | 2020-01-29 11:15 | BH.SGPN.GN ---
Behaviors/Verbalizations/Mental Status: []Pt eye contact good, casually dressed, motor activity appropriate, speech normal rate and tone, mood euthymic, congruent affect, thoughts linear and intact, no evidence of delusions or hallucinations. Client Response/Progress/Benefit: []Pt engaged participant throughout group AEB pt providing input throughout discussion and engaged in activity. Pt did well to challenge self to complete the group activity and incorporate anger management/emotion regulation skills in order to do so. Pt worked with the group to identify the various barriers faced in the activity as well as skills used to successfully complete the task at hand without becoming dysregulated or uncontrollably angry. Group brainstormed with group healthy coping skills to help manage anger which included: mindfulness, crying, walking, exercise, talking to support and petting an animal. He appeared to benefit from brainstorming with the group potential strategies to manage anger in healthy ways. Pt identified plans to work on asking self what's really going on when feeling angry to understand root of anger. Recommended continued IOP to continue use of healthy coping, decrease reassurance behaviors and prevent decompensation. Narrative Note: []
== END 2020-01-30 23:59 ==
LOC: BHIOP 09:00
PROVIDERS: PCP Internal Medicine; Referring Provider Psychiatry & Neurology Psychiatry; Visit Provider Psychiatry & Neurology Psychiatry
DX: F33.1 Major depressive disorder, recurrent, moderate (principal); F41.0 Panic disorder [episodic paroxysmal anxiety]; F41.1 Generalized anxiety disorder; F45.1 Undifferentiated somatoform disorder; Z79.899 Other long term (current) drug therapy
CPT/HCPCS: H0035; 90832; 90834; 90853

== ENCOUNTER → 2020-01-15 13:58 | Outpatient (CLI) | payer BC, SELFPAY ==
--- NOTE | 2020-01-15 14:07 | CT_ITS ---
STUDY: CT CHEST WITH CONTRAST REASON FOR EXAM: Male, 44 years old. Chest pain, abnormal EKG. No prior surgery. RADIATION DOSAGE (If Supplied By Facility): CTDIvol = ( 12.90 ) mGy, DLP = ( 475.19 ) mGycm TECHNIQUE: Transaxial imaging was performed following intravenous administration of IV 50mL Isovue-370. Individualized dose optimization techniques were used for this CT. COMPARISON: None. FINDINGS: Scattered emphysematous changes are noted in both lungs. There is no demonstrated pleural abnormality. Normal heart and pericardium. Normal mediastinum. Normal hilar regions. Normal enhanced pulmonary arteries. Normal aorta arch and descending thoracic aorta. Normal osseous structures. There is a cyst in the lower right liver near the dome segment #7 measures 1 cm. There is right adrenal nodule most likely represent an adenoma measures [address]/Chest WITH Contrast IMPRESSION: Mild emphysematous changes in both lungs. There is a cyst in the lower right liver near the dome segment #7 measures 1 cm. There is right adrenal nodule most likely represents an adenoma measures 2 cm. Electronically Signed: Lilly Elizabeth, at 5:36 EST Tel , Service support ,
== END ==
PROVIDERS: PCP Internal Medicine; Referring Provider Internal Medicine; Visit Provider Internal Medicine
DX: R07.9 Chest pain, unspecified (principal)
CPT/HCPCS: 71260; Q9967

== ENCOUNTER → 2020-01-22 14:57 | Outpatient (CLI) | payer BC, SELFPAY ==
--- NOTE | 2020-01-22 15:02 | RAD_ITS ---
STUDY: X-RAY - THORACIC SPINE REASON FOR EXAM: Male, 44 years old. thoracic pain, no trauma TECHNIQUE: 3 view(s) of the thoracic spine were obtained. COMPARISON: None. FINDINGS: Normal kyphosis of the thoracic spine. There is no substantial scoliosis. Normal thoracic vertebrae and endplates. Normal disc space heights. The soft tissue structures are unremarkable. RAD/Thoracic Spine Min 4 Views IMPRESSION: Normal x-ray examination of the thoracic spine. Electronically Signed: Isabel Hsu MD at 15:38 EST , Service support ,
--- NOTE | 2020-01-22 15:02 | RAD_ITS ---
STUDY: X-RAY - CERVICAL SPINE REASON FOR EXAM: Male, 44 years old. neck pain TECHNIQUE: 5 view(s) of the cervical spine were obtained. COMPARISON: None FINDINGS: Normal anterior atlantoaxial articulation. Normal odontoid process. Normal cervical lordosis. Normal vertebral bodies and endplates. Mild disc narrowing and spondylitic endplate changes at C5-6. Normal visualized intervertebral neuroforamina. The soft tissue structures are unremarkable. RAD/Cerv Spine 4 or 5 Views IMPRESSION: Normal alignment of the cervical spine without fracture, osteolytic or blastic bone lesion. Mild degenerative disc narrowing and spondylitic endplate changes at C5-6. Electronically Signed: Isabel Hsu MD at 15:37 EST , Service support ,
== END ==
PROVIDERS: PCP Internal Medicine; Referring Provider Internal Medicine; Visit Provider Internal Medicine
DX: M54.2 Cervicalgia (principal); M54.6 Pain in thoracic spine
CPT/HCPCS: 72050; 72074

== ENCOUNTER → 2020-01-29 06:23 | Outpatient (CLI) | payer BC, SELFPAY ==
--- NOTE | 2020-01-29 06:39 | MRI_ITS ---
STUDY: MRI BRAIN WITH AND WITHOUT CONTRAST REASON FOR EXAM: Male, 44 years old. chronic daily headaches x months, numbness L cheek area x 3 wks COMPARISON: None. TECHNIQUE: An MRI was performed utilizing axial diffusion and ADC map images followed by axial T2 and FLAIR and gradient echo images followed by sagittal and axial T1 weighted images. Axial and coronal postcontrast T1-weighted images were also obtained. FINDINGS: The diffusion weighted axial images and ADC map images of the head show no evidence of restricted diffusion. The saeid, medulla and midbrain and cerebellum appear to be normal. The ventricles and sulci are normal in size and shape. The cerebral hemispheres show some scattered isolated punctate areas of increased signal in the head radiata bilaterally. Specifically 3 tiny areas of increased signal are seen in the right coronal radiata, sometimes seen in migraine cephalgia.The basal ganglia appear to be normal. No enhancing masses or lesions are seen. The gradient echo axial images are normal. No evidence of a Chiari I malformation is identified. The V4 segments of the vertebral artery, the basilar artery, the posterior cerebral arteries, the cavernous and supraclinoid carotid arteries, and the M1 segments of the middle cerebral arteries are all normal The orbits including the optic nerves and optic chiasm appear normal. The pituitary and pituitary infundibulum appear to be normal. fThe inner and outer tables of the skull are normal The frontal, ethmoid, maxillary, and sphenoid sinuses are normal. The mastoid air cells are normal. MRI/Brain W/WO Contrast IMPRESSION: Isolated scattered focal areas of increased signal are seen in the head radiata bilaterally. These nonspecific demyelinating changes are occasionally associated with chronic migraine cephalgia. Electronically Signed: Antony Echeverria, at 8:10 EST Tel , Service support ,
== END ==
PROVIDERS: PCP Internal Medicine; Referring Provider Internal Medicine; Visit Provider Internal Medicine
DX: R51 Headache (principal); M54.2 Cervicalgia; M54.6 Pain in thoracic spine
CPT/HCPCS: 70553; A9575

== ENCOUNTER 2020-02-02 09:00 | Outpatient (RCR) | payer BC, SELFPAY ==
[2020-01-31 01:05] VITALS: BP 120/76; PULSE 60; RESP 16; TEMP 36.6
--- NOTE | 2020-02-02 09:00 | BH.SGPN.GN ---
Behaviors/Verbalizations/Mental Status: [] Eye contact is good. Motor activity is appropriate. Appearance is neat. Speech is Appropriate. Mood is anxious. Affect is congruent. Thoughts are linear and logical. No evidence of psychosis. Reviewed daily check in sheet and no reports of suicidal ideations or intent. Client Response/Progress/Benefit: [] Pt was an active participant in group discussion. Emotions for today is reserved. Daily symptom tracker notes01/06 for anxiety and 12/06 for agitation. Shared with the group that he returned to work over the weekend and believes that it went well. Honest with his extended family and work regarding his struggles with anxiety which admits led to feelings of vulnerability. Overall notes progress. Along with work pt has been completing numerous medical procedures (MRI) to better clarify somatic issues. At this point he is less anxious and overwhelmed with his health anxiety. Able to sit with his intrusive thoughts and has developed strategies to lessen the impact. Engaged with group discussion on the importance to boundaries and obstacles that get in the way of boundary-setting. Will continue in IOP to maintain gains and increase healthy coping. Narrative Note: []
--- NOTE | 2020-02-02 10:13 | BH.SGPN.GN ---
Behaviors/Verbalizations/Mental Status: []Client alert and oriented, casually dressed and groomed. Eye contact good. Motor activity appropriate. Speech within normal limits. Affect congruent, mood euthymic. Thoughts linear, logical, no signs of hallucinations or delusions. Client Response/Progress/Benefit: []Pt receptive to session, participating throughout. Provided input as the group brainstormed the positive and negative aspects of stress on physical and mental health. Group noted that distress can cause physical health impacts, result in relationship tension, lead to avoidance, and impact emotion regulation. Shared benefits of stress as: increased motivation, improved resilience, improved self-esteem, and increased performance. Client?s current stressors included; work, making time for his relationship with his , his children?s physical and mental health, finances, his diet, and maintenance around the house. Client reports belief that his stress jar is not as full as it has been in the past and expressed that this is due to improved ability to manage stressors as well as increased help from supports. Client stated when stress is too high client will shut down or become sarcastic and irritable. Appeared to benefit from gaining awareness of own current stressors and learning about the impact stress has on overall wellbeing. Progress noted as shown by client?s self-report of improved coping skill application, though continues to struggle with ruminating thoughts causing anxiety. Recommend continued IOP tx to promote use of healthy coping skills and to further reduce mental health symptoms. Narrative Note: []
--- NOTE | 2020-02-02 11:20 | BH.SGPN.GN ---
Behaviors/Verbalizations/Mental Status: []Pt eye contact good, casually dressed, motor activity appropriate, speech normal rate and tone, mood euthymic, congruent affect, thoughts linear and intact, no evidence of delusions or hallucinations. Client Response/Progress/Benefit: []Pt engaged participant in session as evidenced by pt listening attentively to others and providing input at times during session. Pt worked with the group to complete the challenge activity. Pt actively listening during discussion about the 4 A's of managing stress. Pt identified he wants to focus on decreasing the impact of his physical health stressor. Pt stated he will work on this stressor by accepting what is out of his control in regards to his health and refocus on what he can do about his situation. Pt seemed to benefit from increased awareness of the impact of stress on mental health and increasing repertoire of stress management strategies. Pt to continue in IOP to prevent decompensation, continue use of healthy coping skills, and promote gains. Narrative Note: []
--- NOTE | 2020-02-03 12:09 | PCM.BH.PN_ITS ---
Progress Note Progress Note: History of Present Illness/Interim History: [] The patient is a 44-year-old male who is seen in follow-up at the [facility] behavioral health IOP program. I last saw the patient about 3 weeks ago. The patient feels he is doing well in the IOP program. 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 He is slowly increasing his work commitment. He feels his mood has improved and is much better. He may still be mildly depressed in mood. His anxiety is also improving and he is tolerating his medication well. He has been on the Remeron for 3 weeks and he is getting about 7 hours of sleep at night which she feels is okay for him. He has not had any panic attacks in the past few weeks. His primary care doctor added atenolol 12.5 mg p.o. every morning and he feels this may have helped his chest pain somewhat. He is only requiring 0.125 mg of Xanax and this is only a few times a week at most. The patient is still having a work-up for various medical complaints. He had a brain MRI that was normal. He had a mass on his adrenal seen in his primary care doctor has ordered 24-hour urine possibly to rule out pheochromocytoma. The patient continues to have neck pain and headaches and he has a spinal MRI scheduled for tomorrow. He is more focused on his medical complaints today. Current Psychiatric Medications: [] Remeron 15 mg p.o. nightly; atenolol 12.5 mg p.o. every morning (from PCP); Ativan as needed see above Mental Status Examination: [] Patient is a 44-year-old male who appears normal for stated age and is casually dressed and groomed with good hygiene. He is cooperative and pleasant during the interview. There is no psychomotor agitation or retardation. Eye contact is good and speech is normal rate and rhythm and fluent with no pressure. Mood is mildly depressed. Affect is constricted. Thought process is goal-directed and organized. Thought content: No evidence of suicidal or homicidal ideation. No evidence of hallucinations or delusions. Patient remains focused on his pain symptoms and worries about his health. Insight is limited but improving. Judgment is intact. Impulsivity is low. 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 He felt safe during the interview and if at any time he does not feel safe he will tell us or go to the emergency room. The risk, options, possible complications and side effects of the medication were discussed with the patient and he understands and accepts these. Patient agrees to continue staying off caffeine. No medication changes were made and he will continue on his current doses of medications. He will continue to follow-up with his outpatient providers.
--- NOTE | 2020-02-04 10:09 | BH.SGPN.GN ---
Behaviors/Verbalizations/Mental Status: []Client alert and oriented, casually dressed and groomed. Eye contact good. Motor activity appropriate. Speech within normal limits. Affect congruent, mood anxious, euthymic. Thoughts linear, logical, no signs of hallucinations or delusions. Client Response/Progress/Benefit: []Client responded well to session, attentive participant throughout. Participated in group discussion to define and identify differences between internal and external conflict. Client reported ?conflict is necessary for personal growth and progress?. Client shared that anxiety or uncertainty in approach has led to avoiding conflicts in the past. Group reported the benefits of addressing conflict include personal growth, increased trust, safety, having needs be met, and preventing further consequences. Group identified and discussed consequences of not addressing conflict in healthy ways which included: decreased trust, damaged relationships, increased mental health symptoms, and additional conflict. Benefited as client was able to identify and define conflict as well as increase awareness of how conflict style impacts his mental health. Noted it has negatively impacted communication within relationships and resulted in feeling invalidated in the past. Progress noted as shown by client?s report of improved ability to follow through with thought challenging, reduced depression and anxiety, and increased engagement. Will discharge from [facility] tx on this date given current progress made and will continue on outpatient basis to promote insight and application of healthy skills, reduce mental health sx severity, and further improve daily functioning. Narrative Note: []
--- NOTE | 2020-02-04 15:43 | BH.MDN_ITS ---
Multi-Disciplinary Note - Note 30-min Individual Time Started:: 09:20 Date: 02/04/20 Purpose of session/treatment goals addressed:: The purpose of this session was to assess current symptoms, stressors, and treatment progress. Another purpose was to begin discussing aftercare planning and identify strategies for continued progress. Eye Contact:: Good Motor Activity:: Appropriate Appearance:: Neat, Casual Speech:: Appropriate Mood:: Euthymic, Anxious Affect:: Congruent Thoughts:: Linear, Logical, No evidence of hallucinations/delusions noted Staff Interventions:: Therapist asked open ended and furthering questions to elicit information regarding client perception of current symptoms, stressors, application of coping skills, and treatment goal progress. Provided supportive feedback and used strengths-based approaches to assist pt in identifying areas of progress. Used [place] techniques to promote healthy change behaviors and aid Pt in identifying barriers as well as strategies for ongoing tx progress. Worked with pt to complete discharge planning. Client Response:: Client was receptive of meeting and responded well to session. He discussed feeling positive but slightly anxious this morning as he is awaiting results of several medical tests he has had over the past week and expects to hear back at his next appointment scheduled for tomorrow. Client reports that although he is anxious about this, his anxiety is much lower than prior to beginning the IOP program. Reports feeling he is coping better with medical related anxiety and associated intrusive thoughts. Pt and therapist reviewed pt overall areas of progress since beginning IOP tx as well as compared DSM-5 cross cutting scores from admission to current date. Pt reports reduction in overall sx; specifically that of anxiety, depression, and psychosomatic symptomology. Pt shared that he has been using mindfulness interventions and grounding skills to cope with physical anxiety sx when they occur as well as applying radical acceptance to manage and reduce intrusive thinking patterns. 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 Reports plans to return part-time this week and return to modified full-time duties at the end of the month. Pt additionally expressed increased energy and motivation levels, has returned to exercising more consistently, and is spending more quality time with supports. Expressed feeling ready to discharge from IOP tx and continue with therapy on an outpatient basis as he transitions back to work. Given overall sx reduction and improvement in mental health management, this therapist in agreement with plan to discharge on this date. Risks/Concerns:: No risks or concerns noted. Pt denies any active SI, plan, or intent as of this date. 02/04/20. Progress Toward Goals/Plan:: Progress noted. Pt shared continued improvements in overall mood and increased ability to manage daily stressors and intrusive thoughts. Discussed improved confidence due to increased ability to cope with anxiety and return to work . Pt has seen an overall 64% reduction in sx since admission to program. 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 Time Stopped:: 09:54
--- NOTE | 2020-02-04 15:49 | BH.DS_ITS ---
Discharge Summary - Demographics Date of Admission:: 01/12/20 Discharge Date: 02/04/20 Presenting Problems at Admission:: Patient is a 44-year-old male with a history of anxiety and depression who was referred to [facility] in December and since then has had worsening symptoms and 2 emergency room visits for anxiety. 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 Pt has been struggling with significant intrusive thoughts about harming himself, as well as fears he has something physically wrong with him. Medical related anxiety has resulted in pt seeking out several medical tests to identify potential physical ailments and has reduced ability to function at baseline. At time of admission, Pt endorsing sx of increased anxiety, ruminating thoughts, intrusive thoughts of , depression, and low self-worth. Noted current sx have impacted ability to function at baseline and resulted in impacts on personal and occupational functioning. 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 - Treatment Progress During Treatment & Response: Pt has made significant treatment progress since starting IOP. According to pt's self-report as well as scores on DSM 5 cross-cutting measure pt has made progress in reducing sx of anxiety, intrusive thinking, irritability, and depression. Pt has seen an overall 64% symptom reduction compared to intake scores. Pt also made a 50% decrease in depressive symptoms and 71% reduction in anxious symptoms. Pt additionally has shown a decrease in negative thoughts, increased awareness of triggers and warning signs, increase ability to cope with intrusive thinking patterns, application of healthy change and coping behaviors, and improved mood. Pt's plan is to follow up with outpatient therapy and spiritual counseling. Plans to continue medication management through his primary care physician. Issues Still to be Addressed:: Pt could benefit from continued reinforcement of healthy coping skills, challenging negative thoughts and engaging in self-care activities. Pt also would benefit from focusing on skills for coping with ongoing anxiety and psychosomatic sx. Discharge Recommendations/Instructions:: Pt's plan is to follow up with outp atient therapy and spiritual counseling. Plans to continue medication management through his primary care physician. Discharge Handout: Complete Discharge Handout with client on aftercare options and continuity of care.
== END 2020-02-04 12:39 | disposition home or self-care (01) ==
LOC: BHIOP 09:00
PROVIDERS: PCP Internal Medicine; Referring Provider Psychiatry & Neurology Psychiatry; Visit Provider Psychiatry & Neurology Psychiatry
DX: F33.1 Major depressive disorder, recurrent, moderate (principal); F41.0 Panic disorder [episodic paroxysmal anxiety]; F41.1 Generalized anxiety disorder; F45.1 Undifferentiated somatoform disorder; E27.9 Disorder of adrenal gland, unspecified; Z79.899 Other long term (current) drug therapy
CPT/HCPCS: H0035; 90832; 90853

== ENCOUNTER → 2020-02-04 07:11 | Outpatient (CLI) | payer BC, SELFPAY ==
--- NOTE | 2020-02-04 07:29 | MRI_ITS ---
STUDY: MRI CERVICAL SPINE WITHOUT CONTRAST REASON FOR EXAM: Male, 44 years old. cervical pain, headaches, right arm pain more than left TECHNIQUE: Standardized fat and water weighted pulse sequences were obtained in the sagittal and axial planes. COMPARISON: X-ray 01/22/2020 FINDINGS: Normal foramen magnum and brainstem-cervical cord junction. Normal craniovertebral junction. Normal anterior atlantoaxial articulation. Normal odontoid process. Normal cervical lordosis. Normal vertebral bodies and posterior osseous elements. C2-3: Normal endplates. Normal disc height, signal and morphology. Normal central canal and intervertebral neural foramina. C3-4: Normal endplates. Normal disc height, signal and morphology. Normal central canal and intervertebral neural foramina. C4-5: Normal endplates. Normal disc height, signal and morphology. Normal central canal and intervertebral neural foramina. C5-6: Disc desiccation with loss of disc height but no disc protrusion, spinal stenosis, or neural foraminal stenosis. C6-7: Normal endplates. Normal disc height, signal and morphology. Normal central canal and intervertebral neural foramina. C7-T1: Normal endplates. Normal disc height, signal and morphology. Normal central canal and intervertebral neural foramina. Normal cervical cord. Normal visualized soft tissue structures. MRI/Spine Cervical (Routine) IMPRESSION: Disc desiccation with loss of disc height at C5/C6 but no disc protrusion, spinal stenosis, or neural foraminal stenosis. Electronically Signed: Attila Phelps MD at 9:12 EST Tel , Service support ,
== END ==
PROVIDERS: PCP Internal Medicine; Referring Provider Internal Medicine; Visit Provider Internal Medicine
DX: M54.2 Cervicalgia (principal)
CPT/HCPCS: 72141

== ENCOUNTER → 2020-02-12 09:23 | Outpatient (CLI) | payer BC, SELFPAY ==
--- NOTE | 2020-02-12 09:26 | US_ITS ---
STUDY: ABDOMINAL ULTRASOUND - RIGHT UPPER QUADRANT REASON FOR VISIT: Male, 44 years old CHEST/MIDLINE PAIN TECHNIQUE: Ultrasound evaluation of the right upper quadrant was performed with real-time and static patterson-scale imaging. TECHNICAL QUALITY: Adequate. COMPARISON: None. FINDINGS: Liver: The liver measures 13.2 cm. There is normal echogenicity of the liver. The bile ducts are within normal limits. There is hepatic color flow. The direction of portal flow is hepatopetal. There is no demonstrated mass lesion. Small benign-appearing cystic structure seen on the recent CT is not well visualized on this study. Gallbladder: Normal distended gallbladder. The gallbladder wall measures 3 mm. There is a negative sonographic Camacho''s sign. There is no pericholecystic fluid. There are no gallstones. Common Bile Duct (C.B.D.): The common bile duct measures 3 mm. Pancreas: Normal size of the head, body and tail of the pancreas. There is normal echogenicity of the pancreas. There is no demonstrated pancreatic mass or cyst. Right Kidney: Normal size of the right kidney. The right kidney measures 11.7 x 5.2 x 6.7 cm. Normal renal cortex. The right cortex measures 1.7 cm. There is no demonstrated renal mass or cyst. There is no right hydronephrosis. US/Gallbladder IMPRESSION: Normal right upper quadrant ultrasound examination. Electronically Signed: Augustina Howard MD at 13:37 EDT Tel , Service support ,
== END ==
PROVIDERS: PCP Internal Medicine; Referring Provider Internal Medicine; Visit Provider Internal Medicine
DX: R07.9 Chest pain, unspecified (principal)
CPT/HCPCS: 76705

== ENCOUNTER → 2020-07-12 13:31 | Outpatient (CLI) | payer BC, SELFPAY ==
[2020-06-23 14:12] VITALS: BMI 28.8
--- NOTE | 2020-07-12 13:32 | STEWCON_ITS ---
Reason For Study: Chest Pain Stress Results Protocol: Stress Echocardiogram Maximum Predicted HR: 177 bpm Target HR: 150 bpm % Maximum Predicted HR: 90 % Heart Stage Duration Rate BP Comment (mm:ss) (bpm) BASELINE 67 128/80STATES HAS CHEST PAIN DAILY BETTY PROTOCOL- STAGE 1 3:00 95 124/76NO SX BETTY PROTOCOL- STAGE 2 3:00 105 138/72NO SX BETYT PROTOCOL- STAGE 3 3:00 125 152/78FLEETING EPIGASTRIC DISCOMFORT 3/10 BETTY PROTOCOL- STAGE 4 3:00 153 158/78DYSPNEA BETTY PROTOCOL- STAGE 5 0:17 160 / DYSPNEA CHEST PAIN MIDSTERNAL 4-5, T WAVE INVERSION NOTED. RECOVERY 85 138/80MOODISPAW HERE TO SEE PT, T WAVE INVERSION/PAIN RESOLVED Stress Duration: 12:17 mm:ss Maximum Stress HR: 160 bpm METS: 14 Baseline Echocardiogram Findings Stress Echo Wall motion Data Resting WM Intermediate WM Stress WM Resting Wall Motion Wall Motion Stress All segments Normal. All segments Hyperkinetic. Ejection Fraction 60 %. Ejection Fraction 75 %. Stress Results Heart rate response: Appropriate Blood pressure response: Normal resting blood pressure-appropriate response Arrhythmias: There was an isolated PVC during exercise Stopped secondary to: Dyspnea. EKG Data Baseline ECG: Normal sinus rhythm; nonspecific T wave abnormality. Peak exercise ECG: Somatic/motion artifact with no obvious ECG changes Recovery ECG: Demonstrated diffuse nonspecific T wave abnormality/partial inversion with gradual resolution towards baseline in recovery. Symptoms with Stress The patient noted his chest discomfort, although less prominent than previously reported chest discomfort which he stated he had been having for approximately the last 3 days continuously, in recovery with spontaneous improvement. Doppler Measurements & Calculations TR max karley: 223.2 cm/sec TR max P.9 mmHg Interpretation Summary 1. Contrast injection performed 2. Negative (adequate) stress echocardiogram Ordering Physician: Ilan Greenfield Referring Physician: Ilan Greenfield Performed By: Belinda Jeffery RDCS
== END ==
PROVIDERS: PCP Internal Medicine; Referring Provider Internal Medicine Cardiovascular Disease; Visit Provider Internal Medicine Cardiovascular Disease
DX: R07.2 Precordial pain (principal); R00.2 Palpitations
CPT/HCPCS: 93017; 93350; Q9957; A4216; C8928

== ENCOUNTER → 2020-07-22 13:49 | Outpatient (CLI) | payer BC, SELFPAY ==
[2020-06-23 14:12] VITALS: BMI 28.8
--- NOTE | 2020-07-22 13:51 | CT_ITS ---
STUDY: CT CHEST WITH CONTRAST REASON FOR EXAM: Male, 44 years old. Chest pain for 9 months. RADIATION DOSAGE (If Supplied By Facility): CTDIvol = ( ) mGy, DLP = ( 460.98 ) mGycm TECHNIQUE: Transaxial imaging was performed following intravenous administration of IV 100mL Isovue-300. Multiplanar coronal and sagittal images were reformatted. Individualized dose optimization techniques were used for this CT. COMPARISON: CT of the chest, 01/15/2020. FINDINGS: The lungs are well-expanded. There is no acute infiltrate or mass. There is no demonstrated pleural abnormality. Normal heart and pericardium. Normal mediastinum. Normal hilar regions. Normal enhanced pulmonary arteries. Normal aorta arch and descending thoracic aorta. Normal osseous structures. Stable cyst in the dome of the right liver. 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 The upper abdomen is otherwise unremarkable. CT/Chest WITH Contrast IMPRESSION: Normal enhanced CT Chest examination. No major interval change when compared to prior study. Electronically Signed: Konstantin Davis DO at 21:45 EDT Tel [phone], Service support ,
== END ==
PROVIDERS: PCP Internal Medicine; Referring Provider Internal Medicine Cardiovascular Disease; Visit Provider Internal Medicine Cardiovascular Disease
DX: R07.2 Precordial pain (principal)
CPT/HCPCS: 71260; Q9967

== ENCOUNTER → 2021-01-05 16:53 | Outpatient (CLI) | payer BC, SELFPAY ==
[2020-06-23 14:12] VITALS: BMI 28.8
--- NOTE | 2021-01-05 17:12 | MRI_ITS ---
STUDY: MRI BRAIN WITH AND WITHOUT CONTRAST REASON FOR EXAM: Male, 45 years old. f/u abnorml imaging TECHNIQUE: Standardized multiplanar fat and water weighted pulse sequences were obtained. dotarem iv 18cc was administered for the contrast portion of the examination. COMPARISON: 01/29/2020 FINDINGS: Normal size of the ventricles and extra-axial spaces for the patient''s age. There are a few nonspecific punctate white matter lesions seen within the centrum semiovale foramina radiata bilaterally without mass effect or restricted diffusion.. This most likely represents focal ischemic changes secondary to nonspecific small vessel disease although inflammatory disease including Lyme''s disease, demyelinating process or posttraumatic changes cannot be entirely excluded. Normal bilateral basal ganglia. Normal thalami. There is no extra-axial fluid accumulation. Normal flow voids within the major intracranial circulation suggesting patency by spin echo criteria. Normal venous enhancement. There is no enhancing intra-axial or extra-axial abnormality. Normal sella turcica, pituitary gland, infundibular stalk, optic chiasm and hypothalamus. Normal tectal plate and pineal gland. Normal midbrain, saeid and medulla. Normal cerebellum. Normal basal cisterns. Normal bilateral temporal bones. Normal bilateral internal auditory canals. No demonstrated orbital abnormality, within the constraints of a routine brain study. Normal visualized paranasal sinuses. Normal calvarium and skull base. Normal visualized soft tissue structures. Normal visualized upper cervical spine. No significant changes since prior exam. MRI/Brain W/WO Contrast IMPRESSION: Stable appearance to nonspecific periventricular white matter disease. No evidence for obstructive hydrocephalus or enhancing lesion. Electronically Signed: Dylan Joel MD at 20:19 EST , Service support ,
== END ==
PROVIDERS: PCP Internal Medicine; Visit Provider Psychiatry & Neurology Neurology
DX: R93.0 Abnormal findings on diagnostic imaging of skull and head, not elsewhere classified (principal)
CPT/HCPCS: 70553; A9575

== ENCOUNTER → 2021-07-12 15:53 | Outpatient (CLI) | payer OTHER, SELFPAY ==
[2020-06-23 14:12] VITALS: BMI 28.8
[2021-07-12 17:16] LABS: Anion Gap 6 (5-15); BUN 18 mg/dL (7-18); BUN/Creat Ratio 15.5 RATIO (10-20); Calcium,Total 8.9 mg/dL (8.5-10.1); Chloride 108 mmol/L (98-107); Creatinine, Serum 1.16 mg/dL (0.70-1.30); EST Glomerular Filtration Rate 72 mL/min (>60); Est Glom Filt Rate - Afr Amer 88 mL/min (>60); Glucose 123 mg/dL (74-106); Magnesium 2.2 mg/dL (1.6-2.6); Potassium 4.2 mmol/L (3.5-5.1); Sodium Level 142 mmol/L (136-145)
== END ==
PROVIDERS: PCP Internal Medicine; Referring Provider Nurse Practitioner Gerontology; Visit Provider Nurse Practitioner Gerontology
DX: R00.2 Palpitations (principal)
CPT/HCPCS: 36415; 80048; 83735; 84443

== ENCOUNTER → 2021-10-04 06:14 | Outpatient (CLI) | payer OTHER, SELFPAY ==
--- NOTE | 2021-10-04 06:16 | ECHOD_ITS ---
Reason For Study: PALPITATIONS Procedure This was a 2D Doppler, Color Flow transthoracic echocardiogram. The study was technically difficult. Exam performed in department. Left Ventricle Normal LV size. Moderate concentric left ventricular hypertrophy. Left ventricular systolic function is normal. The estimated ejection fraction is 65 %. No evidence for diastolic dysfunction. No regional wall motion abnormalities noted. Right Ventricle Normal RV size. Normal systolic function. Atria Normal left atrium. Normal right atrium. No doppler evidence for ASD. Mitral Valve There is no mitral annular calcification. Normal mitral valve. Mild (1+) mitral valve insufficiency. Tricuspid Valve Normal tricuspid valve. Trivial tricuspid valve insufficiency. Unable to estimate RV systolic pressure/pulmonary artery pressure due to technically difficult study. Aortic Valve Trisinus/trileaflet aortic valve. Normal aortic valve. Pulmonic Valve The pulmonic valve is not well visualized. Great Vessels Normal sized aortic root. Pericardium/Pleural No pericardial effusion. MMode/2D Measurements & Calculations LVIDd: 4.1 cm IVSd: 1.4 cm Ao root diam: 2.9 cm LVIDs: 2.4 cm LVPWd: 1.3 cm RVDd: 3.6 cm FS: 40.5 % LAV(MOD-bp): 41.7 ml LA A4 area: 16.0 cm2 LA dimension(2D): 3.6 cm LAV(MOD-bp) Indexed: 19.8 ml/m2 LAV(MOD-sp2): 40.9 ml LAV(MOD-sp4): 40.8 ml RA A4 area: 17.7 cm2 Time Measurements MV dec time: 0.19 sec Doppler Measurements & Calculations MV E max venancio: 81.9 cm/sec Lat Peak E' Venancio: 12.6 cm/sec Med Peak E' Venancio: 6.3 cm/sec MV A max venancio: 57.2 cm/sec E/E' lat: 6.5 E/E' med: 13.1 MV E/A: 1.4 Ao V2 max: 110.2 cm/sec LV V1 max: 107.4 cm/sec PA V2 max: 90.9 cm/sec Ao max P.9 mmHg LV V1 max P.6 mmHg ECHO/Echo Complete Interpretation Summary The study was technically difficult. Left ventricular systolic function is normal. The estimated ejection fraction is 65 %. Moderate concentric left ventricular hypertrophy. Mild (1+) mitral valve insufficiency. Trivial tricuspid valve insufficiency. Unable to estimate RV systolic pressure/pulmonary artery pressure due to techni pastora difficult study. No evidence for diastolic dysfunction. Ordering Physician: Yokasta Ford Referring Physician: Clementina Bearden Performed By: Molly Doe, NEGRITA, RVT
--- NOTE | 2021-10-04 17:12 | STRESSREP_ITS ---
Stress Test Report Date: 10-04-2021 Procedure: Exercise tolerance test/imaging study Indications: Cardiac dysrhythmia/idioventricular rhythm Consent: Per the patient Procedure: The patient exercised on a Gomez protocol for 11 minutes completing Stage III and 2 minutes of Stage IV achieving a peak heart rate of 155 bpm (88% predicted maximal heart rate) with a peak blood pressure 184/80 mmHg and a peak MET capacity of 13 METs. The baseline ECG demonstrated normal sinus rhythm. The peak exercise ECG demonstrated somatic/motion artifact with no obvious ECG changes. There were no cardiac dysrhythmias pretest, during exercise, or recovery. The functional capacity was considered good. There was no complaint of chest discomfort during exercise or recovery. The examination was discontinued secondary to dyspnea. Impression: 1. Technically adequate (percent predicted maximal heart rate greater than 85%) exercise tolerance test 2. Peak exercise ECG with somatic/motion artifact with no obvious ECG changes 3. There were no cardiac dysrhythmias pretest, during exercise, or recovery 4. Nuclear images pending Myocardial perfusion imaging study: Technique: The patient was injected with 11.5 mCi of technetium 99m Cardiolite and subsequently rest SPECT Cardiolite nuclear imaging was obtained in the horizontal long, vertical long, and short axis views. The patient exercised on a Gomez protocol for 11 minutes completing Stage III and 2 minutes of Stage IV achieving a peak heart rate of 155 bpm (88% predicted maximal heart rate) with a peak blood pressure 184/80 mmHg and a peak MET capacity of 13 METs. The patient was injected with 33.4 mCi of technetium 99m Cardiolite and subsequently stress SPECT Cardiolite nuclear imaging was obtained in the horizontal long, vertical long, and short axis views. A gated Cardiolite study at peak stress was obtained. Interpretation: Rest and stress SPECT Cardiolite nuclear imaging status post realignment, normalization, and attenuation correction, demonstrates at rest the appearance of a small area of subtle diminished tracer uptake near the mid anterior segments which appear to improve/normalize following stress. There are similar type findings on the resting and stress polar map images. There is end systolic thickening and brightening. The gated Cardiolite study demonstrates myocardial thickening and inward wall motion. The reported LVEF is 76%. Impression: 1. Rest and stress SPECT Cardiolite nuclear imaging demonstrate myocardial perfusion changes at rest which appear to improve/normalize following stress appearing compatible shifting soft tissue attenuation/artifact with no myocardial perfusion changes considered diagnostic for associated stress-induced myocardial ischemia. 2. The gated Cardiolite study reports an LVEF of 76%. This note was generated with [employer] software. It may contain incorrect words, spelling, and punctuation that were not noted in checking the note before signing.
== END ==
PROVIDERS: PCP Internal Medicine; Referring Provider Nurse Practitioner Gerontology; Visit Provider Nurse Practitioner Gerontology
DX: I44.2 Atrioventricular block, complete (principal); R00.2 Palpitations
CPT/HCPCS: 78452; 93017; 93306; A9500; A4216

== ENCOUNTER → 2023-07-26 | Outpatient (CLI) | payer OTHER, SELFPAY ==
--- NOTE | 2023-07-26 11:45 | STRESSREP ---
Stress Test Report Date: 07/26/2023 Procedure: Exercise tolerance test/imaging study Indications: Chest pain Consent: Per the patient Procedure: The patient exercised on a Gomez protocol for 9 minutes and 1 second achieving a peak heart rate of 153 bpm (87% predicted maximal heart rate) with a peak blood pressure 178/76 mmHg and a peak MET capacity of 10.4 METs. The baseline ECG demonstrated ST-T wave changes in the inferior and lateral leads. The peak exercise ECG demonstrated no diagnostic changes secondary to baseline abnormality. There were no cardiac dysrhythmias pretest, during exercise, or recovery. The functional capacity was considered good. There was no complaint of chest discomfort during exercise or recovery. The examination was discontinued secondary to target heart rate being achieved. The patient was injected with 13.1 mCi of technetium 99m Cardiolite and subsequently rest SPECT Cardiolite nuclear imaging was obtained in the horizontal long, vertical long, and short axis views. Post-exercise, the patient was injected with 41.0 mCi of technetium 99m Cardiolite and subsequently stress SPECT Cardiolite nuclear imaging was obtained in the horizontal long, vertical long, and short axis views. A gated Cardiolite study at peak stress was obtained. Rest and stress SPECT Cardiolite nuclear imaging status post realignment, normalization, and attenuation correction, demonstrates the appearance of relative uniform tracer uptake and myocardial perfusion appearing within normal limits. There is end systolic thickening and brightening. The gated Cardiolite study demonstrates myocardial thickening and inward wall motion. The reported LVEF is 74%. Impression: 1. Technically adequate (percent predicted maximal heart rate greater than 85%) exercise tolerance test 2. Peak exercise ECG nondiagnostic secondary to baseline abnormality 3. There were no cardiac dysrhythmias pretest, during exercise, or recovery 4. Rest and stress SPECT Cardiolite nuclear imaging demonstrate relative uniform tracer uptake and myocardial perfusion appearing within normal limits. 5. The gated Cardiolite study reports an LVEF of 74%. This note was generated with [employer] software. It may contain incorrect words, spelling, and punctuation that were not noted in checking the note before signing.
== END | disposition home or self-care (01) ==
LOC: CVS 06:18
PROVIDERS: PCP Internal Medicine; Referring Provider Internal Medicine; Visit Provider Internal Medicine
DX: R07.89 Other chest pain (principal)
CPT/HCPCS: 78452; 93017; A9500; A4216

== ENCOUNTER → 2024-03-18 | Outpatient (CLI) | payer OTHER, SELFPAY ==
--- NOTE | 2024-03-18 12:48 | ECHOD_ITS ---
Reason For Study: Chest Pain, Dilated PA Procedure This was a 2D Doppler, Color Flow transthoracic echocardiogram. Myocardial strain analysis was performed in this exam to aid in the assessment of cardiac function. Exam performed in department. Left Ventricle Normal LV size. Severe eccentric left ventricular hypertrophy. Left ventricular systolic function is normal. The estimated ejection fraction is 70 %. Resting LV gradient 5 mmHg. Valsalva LV gradient 7 mmHg. No regional wall motion abnormalities noted. Right Ventricle Normal RV size. Normal systolic function. Atria Normal left atrium. Normal right atrium. Mitral Valve Normal mitral valve. Mild (1+) eccentric mitral valve insufficiency. Tricuspid Valve Normal tricuspid valve. Aortic Valve Trisinus/trileaflet aortic valve. Pulmonic Valve Normal pulmonic valve. Great Vessels Normal aortic root. Mild pulmonary artery dilation. Inferior vena cava collapse with respiration. Pericardium/Pleural No pericardial effusion. MMode/2D Measurements & Calculations LVIDd: 4.0 cm IVSd: 1.7 cm Ao root diam: 3.2 cm LVIDs: 2.2 cm LVPWd: 1.2 cm RVDd: 3.6 cm FS: 45.8 % LAV(MOD-bp): 36.7 ml LVAd ap4: 25.6 cm2 SV(MOD-sp4): 48.1 ml LAV(MOD-bp) Indexed: 17.1 ml/m2 LVLd ap4: 7.6 cm LAV(MOD-sp2): 40.2 ml EDV(MOD-sp4): 71.4 ml LAV(MOD-sp4): 32.7 ml EDV(sp4-el): 73.4 ml LVAs ap4: 12.5 cm2 LVLs ap4: 5.8 cm ESV(MOD-sp4): 23.3 ml ESV(sp4-el): 23.0 ml EF(MOD-sp4): 67.4 % EF(sp4-el): 68.6 % SV(sp4-el): 50.4 ml LA A4 area: 13.6 cm2 LA dimension(2D): 3.6 cm RA A4 area: 14.9 cm2 TAPSE: 2.0 cm Time Measurements MV dec time: 0.21 sec Doppler Measurements & Calculations MV E max venancio: 70.4 cm/sec Lat Peak E' Venancio: 13.3 cm/sec Med Peak E' Venancio: 6.0 cm/sec MV A max venancio: 64.1 cm/sec E/E' lat: 5.3 E/E' med: 11.7 MV E/A: 1.1 Ao V2 max: 116.8 cm/sec LV V1 max: 114.1 cm/sec MV dec slope: 329.7 cm/sec2 Ao max P.5 mmHg LV V1 max P.2 mmHg Ao V2 mean: 93.2 cm/sec LV V1 mean P.5 mmHg Ao mean P.7 mmHg LV V1 mean: 89.0 cm/sec Ao V2 VTI: 26.9 cm LV V1 VTI: 25.7 cm AV (velocity ratio): 0.96 PA V2 max: 86.6 cm/sec PI end-d venancio: 63.8 cm/sec ECHO/Echo Complete Interpretation Summary Normal LV size. Left ventricular systolic function is normal. The estimated ejection fraction is 70 %. Severe eccentric left ventricular hypertrophy. Mild pulmonary artery dilation. The eccentric LVH is worse. The global longitudinal strain is normal. The globa l longitudinal strain = -19.9 % (normal). Ordering Physician: Clementina Bearden Referring Physician: Clementina Bearden Performed By: Charisma Chao, RDCS, RVT
== END | disposition home or self-care (01) ==
LOC: CVS 12:47
PROVIDERS: PCP Internal Medicine; Referring Provider Internal Medicine; Visit Provider Internal Medicine
DX: I28.8 Other diseases of pulmonary vessels (principal); R07.89 Other chest pain
CPT/HCPCS: 93306

== ENCOUNTER → 2024-04-07 | Outpatient (CLI) | payer OTHER, SELFPAY ==
[2024-04-09 12:10] LABS: Free Kappa Light Chains 15.5 mg/L (3.3-19.4); Free Lambda Light Chains 15.4 mg/L (5.7-26.3); Immunoglobulin A 190 mg/dL (90-386); Immunoglobulin G 1204 mg/dL (603-1613); Immunoglobulin M 94 mg/dL (20-172)
== END | disposition home or self-care (01) ==
LOC: LAB 09:49
PROVIDERS: PCP Internal Medicine; Referring Provider Internal Medicine Cardiovascular Disease; Visit Provider Internal Medicine Cardiovascular Disease
DX: I42.2 Other hypertrophic cardiomyopathy (principal)
CPT/HCPCS: 36415; 82784; 83883; 86334; 86335

== ENCOUNTER → 2024-04-24 | Outpatient (CLI) | payer OTHER, SELFPAY ==
[2024-04-24 12:47] LABS: Hematocrit 47.3 % (40-54); Hemoglobin 15.6 g/dL (13.0-16.5); Mean Corpuscular Hgb 29.3 pg (27.0-32.0); Mean Corpuscular Volume 88.7 fL (80-94); Mean Platelet Vol. 9.9 fl (6.2-12.0); Platelet Count 225 K/mm3 (150-450); RBC Distribution Width CV 11.9 % (11.6-14.6); RBC Distribution Width SD 38.6 fl (35.1-43.9); Red Blood Count 5.33 M/mm3 (4.6-6.2); White Blood Count 7.6 K/mm3 (4.4-11.0)
[2024-04-24 13:07] LABS: Vitamin B12 942 pg/mL (211-911)
[2024-04-24 13:49] LABS: Hemoglobin A1c 5.5 % (3.8-5.6)
[2024-04-24 13:53] LABS: AST(SGOT) 19 U/L (15-37); Alanine Aminotransfer ALT/SGPT 25 U/L (16-61); Albumin, Serum 3.7 g/dL (3.2-5.0); Alkaline Phosphatase 57 U/L (45-117); Anion Gap 7 (5-15); BUN 14 mg/dL (7-18); BUN/Creat Ratio 13.7 RATIO (10-20); Calcium,Total 8.9 mg/dL (8.5-10.1); Chloride 106 mmol/L (98-107); Cholesterol 180 mg/dL (200); Creatinine, Serum 1.02 mg/dL (0.70-1.30); EST Glomerular Filtration Rate 83 mL/min (>60); Est Glom Filt Rate - Afr Amer 100 mL/min (>60); Globulin 3.8 g/dL (2.2-4.2); Glucose 95 mg/dL (74-106); High Density Lipoprotein 46 mg/dL; Potassium 3.6 mmol/L (3.5-5.1); Protein, Total 7.5 g/dL (6.4-8.2); Sodium Level 137 mmol/L (136-145); Thyroid Stim Hormone (TSH) 0.75 uIU/mL (0.358-3.74); Triglycerides 72 mg/dL; Very Low Density Lipoprotein 14 mg/dL (5-40)
[2024-04-29 18:07] LABS: Free Kappa Light Chains 16.3 mg/L (3.3-19.4); Free Lambda Light Chains 16.8 mg/L (5.7-26.3); Vitamin B1, Thiamine 178.1 nmol/L (66.5-200.0)
== END | disposition home or self-care (01) ==
LOC: MTLAB 10:25
PROVIDERS: PCP Internal Medicine; Referring Provider Psychiatry & Neurology Neurology; Visit Provider Psychiatry & Neurology Neurology
DX: R20.2 Paresthesia of skin (principal); R73.9 Hyperglycemia, unspecified; E78.5 Hyperlipidemia, unspecified
CPT/HCPCS: 36415; 80053; 80061; 82607; 82746; 83036; 83735; 83883; 84425; 84443; 85027

== ENCOUNTER → 2024-04-30 | Outpatient (CLI) | payer OTHER, SELFPAY ==
--- NOTE | 2024-04-30 12:20 | MRI_ITS ---
STUDY: MRI BRAIN WITH AND WITHOUT CONTRAST REASON FOR EXAM: Male, 48 years old. Migraine headaches; paresthesias TECHNIQUE: Multiplanar multisequence imaging of the brain was performed without and following the administration of intravenous contrast. COMPARISON: 01/05/2021 FINDINGS: The ventricles, cisterns, and sulci are within normal limits for patients age. There is no restricted diffusion to suggest acute ischemia or infarction. No succeptibility artifict to suggest intracranial hemorrhage or mineralization. Major intracranial signal voids are preserved. Stable scattered minimal high T2/FLAIR signal abnormalities in the periventricular white matter. There is no midline shift, mass effect, or extra axial fluid collections are seen. No CP angle or IAC mass is seen. The orbits are unremarkable. The sella turcica and craniovertebral junction are within normal limits. The visualized paranasal sinuses are clear. The mastoid air cells are clear. No abnormal enhancement is seen. MRI/Brain W/WO Contrast IMPRESSION: Stable examination without acute intracranial findings or significant interval change from the prior study. Electronically Signed: Adria Rivera MD at 22:29 EDT ,
== END | disposition home or self-care (01) ==
PROVIDERS: PCP Internal Medicine; Referring Provider Psychiatry & Neurology Neurology; Visit Provider Psychiatry & Neurology Neurology
DX: G43.009 Migraine without aura, not intractable, without status migrainosus (principal); R20.2 Paresthesia of skin
CPT/HCPCS: 70553; A9575

== ENCOUNTER → 2025-06-18 | Outpatient (CLI) | payer OTHER, SELFPAY ==
--- NOTE | 2025-06-18 10:08 | ECHOD_ITS ---
Reason For Study Reason For Study: HYPERTROPHIC CMP Procedure This was a 2D Doppler, Color Flow transthoracic echocardiogram. Exam performed in department. IMAGES #[id number] & # 60 ARE with VALSALVA. Left Ventricle Normal LV size. Mild concentric left ventricular hypertrophy. The LV ejection fraction is 65 %. Stage 1 diastolic dysfunction. Right Ventricle Normal right ventricle. Atria The left and right atria are normal. Mitral Valve Mild (1+) mitral valve insufficiency. Tricuspid Valve Trivial tricuspid valve insufficiency. Normal pulmonary artery pressure. Aortic Valve Trisinus/trileaflet aortic valve. Pulmonic Valve The pulmonic valve is not well visualized. Mild (1+) pulmonic valve insufficiency. Great Vessels Normal sized aortic root. Pericardium/Pleural No pericardial effusion. MMode/2D Measurements & Calculations LVIDd: 4.2 cm IVSd: 1.4 cm Ao root diam: 2.8 cm LVIDs: 2.9 cm LVPWd: 1.2 cm RVDd: 3.4 cm FS: 31.6 % LAV(MOD-sp4): 66.8 ml LVAd ap4: 30.8 cm2 SV(MOD-sp4): 60.7 ml LVLd ap4: 8.0 cm SI(MOD-sp4): 27.5 ml/m2 EDV(MOD-sp4): 96.8 ml EDV(sp4-el): 101.2 ml LVAs ap4: 15.9 cm2 LVLs ap4: 6.5 cm ESV(MOD-sp4): 36.2 ml ESV(sp4-el): 33.2 ml EF(MOD-sp4): 62.6 % EF(sp4-el): 67.2 % SV(sp4-el): 68.0 ml LA A4 area: 22.4 cm2 LA dimension(2D): 3.8 cm RA A4 area: 16.5 cm2 TAPSE: 2.5 cm Time Measurements MV dec time: 0.20 sec Doppler Measurements & Calculations MV E max venancio: 91.4 cm/sec Lat Peak E' Venancio: 15.5 cm/sec Med Peak E' Venancio: 8.0 cm/sec MV A max venancio: 65.1 cm/sec E/E' lat: 5.9 E/E' med: 11.5 MV E/A: 1.4 MV V2 max: 102.7 cm/sec MV P1/2t max venancio: 98.1 cm/sec Ao V2 max: 127.5 cm/sec MV max P.2 mmHg MV P1/2t: 59.7 msec Ao max P.5 mmHg MV V2 mean: 47.0 cm/sec Ao V2 mean: 96.6 cm/sec MV mean P.1 mmHg MV dec slope: 481.8 cm/sec2 Ao mean P.1 mmHg MV V2 VTI: 28.4 cm MVA(P1/2t): 3.7 cm2 Ao V2 VTI: 31.0 cm AV (velocity ratio): 0.84 LV V1 max: 114.5 cm/sec PA V2 max: 94.5 cm/sec TR max venancio: 229.6 cm/sec LV V1 max P.2 mmHg PA V2 mean: 72.5 cm/sec TR max P.1 mmHg LV V1 mean P.1 mmHg LV V1 mean: 84.5 cm/sec LV V1 VTI: 26.0 cm ECHO/Echo Complete Interpretation Summary Mild concentric left ventricular hypertrophy. The LV ejection fraction is 65 %. Stage 1 diastolic dysfunction. No systolic anterior motion of the mitral valve leaflet noted. No significant L VOT gradient. Mild (1+) mitral valve insufficiency. Mild (1+) pulmonic valve insufficiency. Ordering Physician: Flores Benoit Referring Physician: Danny Baer Performed By: Molly Doe, NEGRITA, RVT
== END | disposition home or self-care (01) ==
LOC: CVS 10:07
PROVIDERS: PCP Internal Medicine; Referring Provider Physician Assistant Medical; Visit Provider Physician Assistant Medical
DX: I42.2 Other hypertrophic cardiomyopathy (principal)
CPT/HCPCS: 93306